=== PATIENT | female | born 1955 | race Caucasian/White ===

== ENCOUNTER 2017-12-11 08:41 | Inpatient (IN) | payer OTHER ==
--- NOTE | 2017-12-11 09:23 | PDOC ---
Attending Attestation - Resident Resident Name: Leo Jo - HPI HPI: 12/11/17 09:42 pt presents to the ED complaining of a 7 day history of cough and a three day history of worsening AGUILERA and SOB. Denies orthopnea. Complains of chest pain with cough only. Denies medical history except for COPD. Cough is occasionally productive of yellow sputum. - Physicial Exam PE: 12/11/17 09:55 Agree with resident exam. Patient is mildly tachypneic, but she is not in respiratory distress and lungs are clear. Heart has regular rate and rhythm with no murmurs. - Medical Decision Making 12/11/17 09:55 Pt presents to the ED complaining of shortness of breath and cough. History of COPD. No improvement with antibiotics and steroids. Patient has not been using bronchodilators to treat his COPD. Denies other complaints. Differential includes COPD exacerbation, CHF, less likely ACS or PNA. Will check labs and CXR, cardiac profile and BNP. EKG shows no evidence of ischemia.
[2017-12-11] MEDS ORDERED: ALBUTEROL SO4 2.5/IPRATROPIUM 0.5 INH SOL 3 ML VIAL.NEB. NEB ONE ×4 (09:48→20:05)
--- NOTE | 2017-12-11 09:52 | PDOC ---
History of Present Illness - General Chief Complaint: Shortness of Breath Stated Complaint: SOB Time Seen by Provider: 12/11/17 09:03 History Source: Patient Exam Limitations: No Limitations - History of Present Illness Initial Comments: 12/11/17 09:49 The patient is a 62F with a PMH of COPD, HLD, asthma, and psych history ( paranoid schizophrenia, depression, anxiety) who presents to the ER with worsening SOB. The patient states that she had a cough with SOB that started 8- 9 days ago. She was given a z-pack by her PCP, then given levaquin and prednisone. She finished taking the prednisone and has 1 more day of levaquin but states that her shortness of breath has continued to worsen. It is not associated with fever, chills, nausea, vomiting but is associated with SOB and productive cough 3x over the past week that she has been coughing. Past History - Past Medical History Allergies/Adverse Reactions: Allergies Allergy/AdvReac Type Severity Reaction Status Date / Time amoxicillin [Amoxicillin] Allergy Unknown Rash Verified 12/11/17 08:47 Home Medications: Ambulatory Orders Albuterol Sulfate Inhaler - [Ventolin HFA Inhaler -] 1 - 2 inh PO Q4H 12/11/17 Atorvastatin Ca [Lipitor] 20 mg PO HS 12/11/17 Benzonatate [Tessalon Pearls -] 100 mg PO TID #21 capsule 12/11/17 Fluticasone/Vilanterol [Breo Ellipta 100-25 Mcg INH] 1 each IH ASDIR 12/11/17 Levothyroxine [Synthroid -] 112 mcg PO DAILY 12/11/17 Lorazepam [Ativan] 2 mg PO BID 12/11/17 Montelukast Na [Singulair -] 10 mg PO HS 12/11/17 Olanzapine [Zyprexa] 30 mg PO DAILY 12/11/17 Sertraline HCl [Zoloft] 100 mg PO DAILY 12/11/17 Verapamil HCl [Verapamil ER] 120 mg PO DAILY 12/11/17 Budesonide/Formeterol Fumarate [SYMBICORT 160/4.5mcg -] 2 puff IH BID #1 inhaler 12/13/17 Tiotropium [place] [Spiriva] 1 inh IH DAILY #1 inh 12/13/17 predniSONE [Deltasone -] 5 mg PO ASDIR #78 tab 12/13/17 Anemia: Yes Asthma: Yes (/COUGH) Cancer: No Cardiac Disorders: Yes (palpitations) CVA: No COPD: Yes CHF: No DVT: No Dementia: No Diabetes: No GI Disorders: Yes (HIATAL HERNIA,DIVERTICULOSIS) Disorders: No HTN: No Hypercholesterolemia: Yes Liver Disease: No Seizures: No Thyroid Disease: No - Surgical History Abdominal Surgery: Yes (hital hernia) Appendectomy: No Cardiac Surgery: No Cholecystectomy: No Lung Surgery: No Neurologic Surgery: No Orthopedic Surgery: Yes (LT HIP ORIF,RT ANKLE) - Suicide/Smoking/Psychosocial Hx Smoking History: Never smoked Have you smoked in the past 12 months: No Information on smoking cessation initiated: No Hx Alcohol Use: No Drug/Substance Use Hx: No Substance Use Type: None Hx Substance Use Treatment: No Review of Systems - Review of Systems Able to Perform ROS?: Yes Comments:: 12/11/17 09:49 GENERAL/CONSTITUTIONAL: No fever or chills. No weakness. HEAD, EYES, EARS, NOSE AND THROAT: No change in vision. No ear pain or discharge. No sore throat. CARDIOVASCULAR: No chest pain, palpitations, or lightheadedness. RESPIRATORY: Positive for cough and shortness of breath. No wheezing or hemoptysis. GASTROINTESTINAL: No nausea, vomiting, diarrhea, constipation, or abdominal pain. GENITOURINARY: No dysuria, frequency, hematuria, or change in urination. MUSCULOSKELETAL: No joint or muscle swelling or pain. No neck or back pain. SKIN: No rash or lesions. NEUROLOGIC: No headache, numbness, tingling, weakness, loss of consciousness, or change in strength/sensation. ENDOCRINE: No increased thirst. No abnormal weight change. HEMATOLOGIC/LYMPHATIC: No anemia, easy bleeding, or history of blood clots. ALLERGIC/IMMUNOLOGIC: No hives or skin allergy. Is the patient limited Citizen Of [place] proficient: No *Physical Exam - Vital Signs Last Vital Signs Temp Pulse Resp BP Pulse Ox 97.6 F 87 22 107/72 95 12/11/17 08:48 12/11/17 08:48 12/11/17 08:48 12/11/17 08:48 12/11/17 08:48 - Physical Exam Comments: 12/11/17 09:49 GENERAL: Well developed, well nourished. Awake and alert. No acute distress. HEENT: Normocephalic, atraumatic. Hearing grossly normal. Moist mucous membranes. PERRLA, EOMI. No conjunctival pallor. Sclera are non-icteric. NECK: Supple. Full ROM. CARDIOVASCULAR: Regular rate and rhythm. No murmurs, rubs, or gallops. PULMONARY: No evidence of respiratory distress. Lungs clear to auscultation bilaterally. No wheezing, rales or rhonchi. ABDOMINAL: Soft. Non-tender. Non-distended. No rebound or guarding. No organomegaly. Normoactive bowel sounds. GENITOURINARY: No CVA tenderness bilaterally. MUSCULOSKELETAL: Normal range of motion at all joints. No bony deformities or tenderness. EXTREMITIES: No cyanosis. No clubbing. No edema. No calf tenderness or swelling. SKIN: Warm and dry. Normal capillary refill. No rashes. No jaundice. NEUROLOGICAL: Alert, awake, appropriate. Cranial nerves 2-12 intact. Normal speech. Gait is normal without ataxia. PSYCHIATRIC: Cooperative. Good eye contact. Appropriate mood and affect. ED Treatment Course - LABORATORY CBC & Chemistry Diagram: 12/13/17 06:20 12/13/17 06:20 - RADIOLOGY Radiology Studies Ordered: Category Date Time Status CHEST PA & LAT [RAD] Stat Radiology 12/11/17 09:30 Ordered Medical Decision Making - Medical Decision Making 12/11/17 12:46 The patient is a 62F with a PMH of COPD and psych who presents to the ER with worsening SOB. All labs including CBC, CMP, trop, and EKG negative. CXR negative on preliminary read. Pending official read. Will tx with yanely x 2. I have spoken with Dr. Tijerina who wants to see the patient in the ER. Will send jamie sagastume to 's pharmacy. 12/11/17 15:01 Dr. Tijerina requests that the patient is admitted to the hospital for worsening shortness of breath and for a workup regarding this. Dr. Ugalde has been paged. 12/11/17 15:22 I have endorsed the patient to Dr. Ugalde for obs tele admission. *DC/Admit/Observation/Transfer Diagnosis at time of Disposition: AGUILERA (dyspnea on exertion) - Discharge Dispostion Disposition: HOME Condition at time of disposition: Stable Decision to Admit order: Yes - Prescriptions - Referrals - Patient Instructions - Post Discharge Activity
[2017-12-11 09:59] LABS: BASO % 0.5 % (0-2.0); EOS % 0.4 % (0-4.5); HEMATOCRIT 40.6 % (32.4-45.2); HEMOGLOBIN 13.7 GM/dL (10.7-15.3); LYMPH % 20.2 % (8-40); MCH 30.2 pg (25.7-33.7); MCHC 33.9 g/dl (32.0-36.0); MEAN CELL VOLUME 89.1 fl (80-96); MEAN PLT VOLUME 7.2 fl (7.5-11.1); MONO % 9.3 % (3.8-10.2); NEUT % 69.6 % (42.8-82.8); PLATELET COUNT 275 K/MM3 (134-434); RBC 4.56 M/mm3 (3.60-5.2); RDW 13.7 % (11.6-15.6); WHITE BLOOD COUNT 9.6 K/mm3 (4.0-10.0)
[2017-12-11 10:21] LABS: ALBUMIN 3.7 g/dl (3.4-5.0); ALK PHOS 90 U/L (45-117); ANION GAP 10 (8-16); BILIRUBIN,TOTAL 0.3 mg/dL (0.2-1.0); BLOOD UREA NITROGEN 15 mg/dL (7-18); CALCIUM 9.1 mg/dL (8.5-10.1); CHLORIDE 101 mmol/L (98-107); CO2 23 mmol/L (21-32); CREATININE 0.9 mg/dL (0.55-1.02); GLUCOSE,RANDOM 114 mg/dL (74-106); SGPT/ALT 19 U/L (12-78); SODIUM 134 mmol/L (136-145); TOT PROT 7.1 g/dl (6.4-8.2)
[2017-12-11 10:23] LABS: N-TERMINAL BNP 104.93 pg/ml (5-125)
[2017-12-11 10:40] LABS: POTASSIUM 4.2 mmol/L (3.5-5.1); SGOT/AST 22 U/L (15-37)
[2017-12-11] MEDS ORDERED: methylPREDNISolone NA SUCC 125 MG/2 ML VIAL IVPB ONE (13:27)
--- NOTE | 2017-12-11 13:30 | EKG ---
Test Reason : Blood Pressure : / mmHG Vent. Rate : 082 BPM Atrial Rate : 082 BPM P-R Int : 162 ms QRS Dur : 102 ms QT Int : 388 ms P-R-T Axes : 070 008 038 degrees QTc Int : 453 ms SINUS RHYTHM WITH PREMATURE ATRIAL COMPLEXES INCOMPLETE RIGHT BUNDLE BRANCH BLOCK NONSPECIFIC T WAVE ABNORMALITY anterior leads WHEN COMPARED WITH ECG OF 22-DEC-2016 09:21, PREMATURE ATRIAL COMPLEXES ARE NOW PRESENT Confirmed by MD Eben, Kolby ([id number]) on 12/11/2017 1:30:22 PM Referred By: Confirmed By:Kolby Treadwell MD
[2017-12-11] MEDS ORDERED: methylPREDNISolone NA SUCC 40 MG/1 ML VIAL ONE ×3 (14:15→20:05)
[2017-12-11] MEDS ORDERED: guaiFENesin/CODEINE 10 ML UNIT-DOSE CUPS PO ONE (14:19)
[2017-12-11] MEDS ORDERED: guaiFENesin/CODEINE 5 ML UNIT-DOSE CUPS PO ONE (15:10)
--- NOTE | 2017-12-11 15:47 | HP ---
Admitting History and Physical - Primary Care Physician PCP: Nikolay Tijerina - Admission Chief Complaint: I'm short of breath History of Present Illness: Ms Gomes is a 62 year old female who comes in with worsening shortness of breath and cough for 2 weeks. She says she has been short of breath for approximately 2 years but the past 2 weeks her shortness of breath has worsened. She says she gets short of breath with minimal exertion and when lying flat. She says she also developed cough 7 days ago. She says it is minimally productive but in general it is a dry cough. She says it is also worsened with exertion. She has some lightheadedness with coughing but no syncope. She says she often hears wheezing when she gets short of breath. She denies fevers, chills, chest pain or pressure, palpitations, abdominal pain, nausea, vomiting, diarrhea, constipation, difficulty or pain on urination, or swelling. She is short of breath currently after going to the restroom. History Source: Patient Limitations to Obtaining History: No Limitations - Past Medical History Cardiovascular: Yes: Hyperlipdemia, Other (palpitations) Psych: Yes: Anxiety, Depression, Schizophrenia Endocrine: Yes: Hypothyroidism - Past Surgical History Past Surgical History: Yes: Joint Replacement - Smoking History Smoking history: Never smoked Have you smoked in the past 12 months: No - Alcohol/Substance Use Hx Alcohol Use: No History of Substance Use: reports: None - Social History ADL: Independent History of Recent Travel: No Home Medications - Allergies Allergies/Adverse Reactions: Allergies Allergy/AdvReac Type Severity Reaction Status Date / Time amoxicillin [Amoxicillin] Allergy Unknown Rash Verified 12/11/17 08:47 - Home Medications Home Medications: Ambulatory Orders Albuterol Sulfate Inhaler - [Ventolin Hfa Inhaler -] 1 - 2 inh PO Q4H 12/11/17 Atorvastatin Ca [Lipitor] 20 mg PO HS 12/11/17 Benzonatate [Tessalon Pearls -] 100 mg PO TID #21 capsule 12/11/17 Fluticasone/Vilanterol [Breo Ellipta 100-25 Mcg INH] 1 each IH ASDIR 12/11/17 Levothyroxine [Synthroid -] 112 mcg PO DAILY 12/11/17 Lorazepam [Ativan] 2 mg PO BID 12/11/17 Montelukast Na [Singulair -] 10 mg PO HS 12/11/17 Olanzapine [Zyprexa] 30 mg PO DAILY 12/11/17 Sertraline HCl [Zoloft] 100 mg PO DAILY 12/11/17 Verapamil HCl [Verapamil ER] 120 mg PO DAILY 12/11/17 levoFLOXacin [Levaquin] 750 mg PO DAILY 12/11/17 Family Disease History - Family Disease History Family Disease History: Heart Disease: Grandparent Review of Systems Findings/Remarks: Full review of systems obtained, as per HPI and otherwise negative Physical Examination Vital Signs: Vital Signs Temperature 36.3 C L 12/11/17 13:47 Pulse Rate 98 H 12/11/17 14:10 Respiratory Rate 20 12/11/17 13:47 Blood Pressure 115/72 12/11/17 13:47 O2 Sat by Pulse Oximetry (%) 96 12/11/17 13:47 Constitutional: Yes: No Distress, Calm, Obese Eyes: Yes: Conjunctiva Clear, EOM Intact, PERRL Cardiovascular: Yes: Regular Rate and Rhythm. No: Gallop, Murmur, Rub Respiratory: Yes: Cough (dry), Tachypnea, Wheezes (slight). No: Regular, CTA Bilaterally, Rales, Rhonchi Gastrointestinal: Yes: Normal Bowel Sounds, Soft. No: Distention, Tenderness Extremities: Yes: WNL Edema: No Labs: CBC, BMP 12/11/17 09:50 12/11/17 09:50 Imaging - Results Chest X-ray: Report Reviewed, Image Reviewed Problem List - Problems (1) AGUILERA (dyspnea on exertion) Assessment/Plan: -acutely worsened -failed outpatient z-pack and levaquin -failed short course of low dose prednisone -unclear cause -admit to hospital -consult pulmonary -check d-dimer and duplex dopplers -check ABG -bronchodilators -solumedrol 40mg q6h -monitor for improvement Code(s): R06.09 - OTHER FORMS OF DYSPNEA (2) HLD (hyperlipidemia) Assessment/Plan: -continue lipitor Code(s): E78.5 - HYPERLIPIDEMIA, UNSPECIFIED (3) Hypothyroid Assessment/Plan: -continue synthroid Code(s): E03.9 - HYPOTHYROIDISM, UNSPECIFIED (4) Paranoid schizophrenia Assessment/Plan: -continue zyprexa Code(s): F20.0 - PARANOID SCHIZOPHRENIA (5) Depression Assessment/Plan: -continue zoloft Code(s): F32.9 - MAJOR DEPRESSIVE DISORDER, SINGLE EPISODE, UNSPECIFIED (6) History of palpitations in adulthood Assessment/Plan: -continue verapamil Code(s): Z86.79 - PERSONAL HISTORY OF OTHER DISEASES OF THE CIRCULATORY SYSTEM
[2017-12-11] MEDS: IPRATROPIUM BR 0.02% 0.5 MG/2.5 ML VIAL.NEB. NEB SCH ×2 (16:00→20:17)
[2017-12-11] MEDS ORDERED: ACETAMINOPHEN 325 MG TABLET (FP) PO PRN (16:00)
[2017-12-11] MEDS: ALBUTEROL SO4 0.083% IH SOL 2.5 MG/3 ML VIAL.NEB. NEB SCH ×2 (16:00→20:17)
[2017-12-11] MEDS: methylPREDNISolone NA SUCC 40 MG/1 ML VIAL IVPUSH SCH (20:15)
[2017-12-11] MEDS ORDERED: LORazepam 0.5 MG TABLET ONE (22:21)
[2017-12-11] MEDS ORDERED: OLANZapine 10 MG TABLET ONE (22:21)
[2017-12-11] MEDS ORDERED: ATORVASTATIN CA 40 MG TABLET (FP) ONE (22:22)
[2017-12-11] MEDS ORDERED: MONTELUKAST NA 10 MG TABLET ONE (22:22)
[2017-12-11] MEDS: OLANZapine 10 MG TABLET PO SCH (22:32)
[2017-12-11] MEDS: MONTELUKAST NA 10 MG TABLET PO SCH (22:32)
[2017-12-11] MEDS: ATORVASTATIN CA 20 MG TABLET (FP) PO SCH (22:32)
[2017-12-11] MEDS: LORazepam 1 MG TABLET PO SCH (22:33)
[2017-12-12 00:37] LABS: ARTERIAL BLD GAS O2 SATURATION 95.4 % (90-98.9); ARTERIAL BLOOD GAS BASE EXCESS -1.9 meq/l (-2-2); ARTERIAL BLOOD GAS PCO2 33.6 mmHg (35-45); ARTERIAL BLOOD GAS PO2 72.9 mmHg (80-100); ARTERIAL BLOOD GAS pH 7.42 (7.35-7.45)
[2017-12-12 00:46] LABS: ALLENS TEST POSITIVE
[2017-12-12] MEDS ORDERED: methylPREDNISolone NA SUCC 40 MG/1 ML VIAL ONE (02:02)
[2017-12-12] MEDS: methylPREDNISolone NA SUCC 40 MG/1 ML VIAL IVPUSH SCH ×3 (02:10→17:29)
[2017-12-12] MEDS: IPRATROPIUM BR 0.02% 0.5 MG/2.5 ML VIAL.NEB. NEB SCH ×4 (07:40→20:00)
[2017-12-12] MEDS: ALBUTEROL SO4 0.083% IH SOL 2.5 MG/3 ML VIAL.NEB. NEB SCH (07:40)
[2017-12-12] MEDS: LEVOTHYROXINE NA 112 MCG TABLET (FP) PO SCH (07:41)
--- NOTE | 2017-12-12 08:48 | PN ---
Progress Note (short form) - Note Progress Note: Dr. Ugalde to document today.
[2017-12-12 09:00] LABS: BASO % 0.2 % (0-2.0); EOS % 0.1 % (0-4.5); HEMATOCRIT 41.6 % (32.4-45.2); HEMOGLOBIN 14.1 GM/dL (10.7-15.3); LYMPH % 11.5 % (8-40); MCHC 33.7 g/dl (32.0-36.0); MEAN PLT VOLUME 7.2 fl (7.5-11.1); MONO % 3.7 % (3.8-10.2); NEUT % 84.5 % (42.8-82.8); PLATELET COUNT 304 K/MM3 (134-434); RBC 4.68 M/mm3 (3.60-5.2); RDW 13.7 % (11.6-15.6); WHITE BLOOD COUNT 8.6 K/mm3 (4.0-10.0)
[2017-12-12 09:15] VITALS: BMI 41.1
[2017-12-12] MEDS ORDERED: PT OWN MED DRAWER 7, Y5N ONE ×3 (09:21→21:20)
[2017-12-12 09:22] LABS: ANION GAP 10 (8-16); BLOOD UREA NITROGEN 13 mg/dL (7-18); CALCIUM 9.4 mg/dL (8.5-10.1); CHLORIDE 104 mmol/L (98-107); CO2 23 mmol/L (21-32); CREATININE 0.9 mg/dL (0.55-1.02); GLUCOSE,RANDOM 196 mg/dL (74-106); MAGNESIUM 2.5 mg/dL (1.8-2.4); PHOSPHOROUS 3.3 mg/dL (2.5-4.9); SODIUM 137 mmol/L (136-145)
[2017-12-12] MEDS: ENOXAPARIN NA (PORCINE) 40 MG/0.4 ML DISP.SYRIN SQ SCH (09:30)
[2017-12-12] MEDS: LORazepam 1 MG TABLET PO SCH ×2 (09:30→21:05)
[2017-12-12] MEDS: SERTRALINE HCL 50 MG TABLET (FP) PO SCH (09:30)
[2017-12-12] MEDS: VERAPAMIL HCL 120 MG E.R. TABLET PO SCH (11:37)
--- NOTE | 2017-12-12 11:42 | PN ---
Progress Note (short form) - Note Progress Note: PULMONARY CONSULTATION DICTATED 12/12/17 IMP ASTHMA/COPD EXACERBATION URI H/O DEPRESSION,SCHIZOPHRENIA H/O TOBACCO ABUSE HLD PLAN IV STEROIDS INHALED BRONCHODILATORS MONITOR PEAK FLOW DVT PROPHYLAXIS LOW DOSE CHEST CT FOR LUNG CANCER SCREENING DR SUÁREZ Problem List - Problems (1) Asthma-COPD overlap syndrome Code(s): J44.9 - CHRONIC OBSTRUCTIVE PULMONARY DISEASE, UNSPECIFIED (2) AGUILERA (dyspnea on exertion) Code(s): R06.09 - OTHER FORMS OF DYSPNEA (3) Depression Code(s): F32.9 - MAJOR DEPRESSIVE DISORDER, SINGLE EPISODE, UNSPECIFIED (4) HLD (hyperlipidemia) Code(s): E78.5 - HYPERLIPIDEMIA, UNSPECIFIED (5) Paranoid schizophrenia Code(s): F20.0 - PARANOID SCHIZOPHRENIA
[2017-12-12] MEDS ORDERED: ALBUTEROL SO4 0.083% IH SOL 2.5 MG/3 ML VIAL.NEB. NEB PRN (11:43)
--- NOTE | 2017-12-12 11:47 | PN ---
Progress Note, Physician Chief Complaint: Ms Gomes says she is feeling better today. Says her breathing is improved and her wheezing has almost resolved. No cp or n/v. - Current Medication List Current Medications: Active Medications Acetaminophen (Tylenol -) 650 mg PO Q4H PRN PRN Reason: PAIN LEVEL 1-5 Albuterol Sulfate (Ventolin 0.083% Nebulizer Soln -) 1 amp NEB Q4H PRN PRN Reason: SHORT OF BREATH/WHEEZING Atorvastatin Calcium (Lipitor -) 20 mg PO HS COUNT INCLUDES THE [facility] Last Admin: 12/11/17 22:32 Dose: 20 mg Budesonide/Formoterol Fumarate (Symbicort 160/4.5mcg -) 2 puff IH BID MIGUEL Enoxaparin Sodium (Lovenox -) 40 mg SQ DAILY COUNT INCLUDES THE [facility] Last Admin: 12/12/17 09:30 Dose: 40 mg Ipratropium [place] (Atrovent 0.02% Nebulizer -) 1 amp NEB RQID COUNT INCLUDES THE [facility] Last Admin: 12/12/17 07:40 Dose: 1 amp Levothyroxine Sodium (Synthroid -) 112 mcg PO 0700 COUNT INCLUDES THE [facility] Last Admin: 12/12/17 07:41 Dose: 112 mcg Lorazepam (Ativan -) 2 mg PO BID COUNT INCLUDES THE [facility] Last Admin: 12/12/17 09:30 Dose: 2 mg Methylprednisolone Sodium Succinate (Solu-Medrol -) 40 mg IVPUSH Q8H-IV COUNT INCLUDES THE [facility] Last Admin: 12/12/17 09:30 Dose: 40 mg Montelukast Sodium (Singulair -) 10 mg PO HS COUNT INCLUDES THE [facility] Last Admin: 12/11/17 22:32 Dose: 10 mg Non-Formulary Medication (Fluticasone/Vilanterol [Breo Ellipta 100-25 Mcg Inh]) 1 each IH ASDIR MIGUEL Olanzapine (Zyprexa -) 30 mg PO [facility] Last Admin: 12/11/17 22:32 Dose: 30 mg Sertraline HCl (Zoloft -) 100 mg PO DAILY COUNT INCLUDES [facility] Last Admin: 12/12/17 09:30 Dose: 100 mg Verapamil HCl (Calan Sr -) 120 mg PO DAILY COUNT INCLUDES THE [facility] Last Admin: 12/12/17 11:37 Dose: 120 mg - Objective Vital Signs: Vital Signs Temperature 37.0 C 12/12/17 09:00 Pulse Rate 88 12/12/17 09:00 Respiratory Rate 20 12/12/17 09:00 Blood Pressure 114/70 12/12/17 09:00 O2 Sat by Pulse Oximetry (%) 94 L 12/12/17 09:00 Constitutional: Yes: No Distress, Calm, Obese Cardiovascular: Yes: Regular Rate and Rhythm. No: Gallop, Murmur, Rub Respiratory: Yes: Regular, Wheezes (slight) Gastrointestinal: Yes: Normal Bowel Sounds, Soft. No: Distention, Tenderness Extremities: Yes: WNL Edema: No Labs: CBC, BMP 12/12/17 08:45 12/12/17 08:45 Problem List - Problems (1) AGUILERA (dyspnea on exertion) Code(s): R06.09 - OTHER FORMS OF DYSPNEA (2) HLD (hyperlipidemia) Code(s): E78.5 - HYPERLIPIDEMIA, UNSPECIFIED (3) Hypothyroid Code(s): E03.9 - HYPOTHYROIDISM, UNSPECIFIED (4) Paranoid schizophrenia Code(s): F20.0 - PARANOID SCHIZOPHRENIA (5) Depression Code(s): F32.9 - MAJOR DEPRESSIVE DISORDER, SINGLE EPISODE, UNSPECIFIED (6) History of palpitations in adulthood Code(s): Z86.79 - PERSONAL HISTORY OF OTHER DISEASES OF THE CIRCULATORY SYSTEM Assessment/Plan (1) AGUILERA (dyspnea on exertion) Assessment/Plan: -much improved -appreciate pulmonary assistance and case d/w Dr Yoon -continue solumedrol -continue bronchodilators -CT scan for lung cancer screening Code(s): R06.09 - OTHER FORMS OF DYSPNEA (2) HLD (hyperlipidemia) Assessment/Plan: -continue lipitor Code(s): E78.5 - HYPERLIPIDEMIA, UNSPECIFIED (3) Hypothyroid Assessment/Plan: -continue synthroid Code(s): E03.9 - HYPOTHYROIDISM, UNSPECIFIED (4) Paranoid schizophrenia Assessment/Plan: -continue zyprexa Code(s): F20.0 - PARANOID SCHIZOPHRENIA (5) Depression Assessment/Plan: -continue zoloft Code(s): F32.9 - MAJOR DEPRESSIVE DISORDER, SINGLE EPISODE, UNSPECIFIED (6) History of palpitations in adulthood Assessment/Plan: -continue verapamil Code(s): Z86.79 - PERSONAL HISTORY OF OTHER DISEASES OF THE CIRCULATORY SYSTEM Dispo -possible discharge tomorrow
--- NOTE | 2017-12-12 12:21 | CONS ---
DATE OF CONSULTATION: 12/12/2017 REFERRING PHYSICIAN: Sonido Ugalde MD The patient is a 62-year-old white female with a past medical history of COPD/asthma, hyperlipidemia, history of paranoid schizophrenia, depression, anxiety, history of tobacco use approximately half-pack per day, quit 9 years ago, admitted to [facility] with the complaint of increasing shortness of breath and cough and bronchospasm. Patient states she was doing relatively well until approximately 8 to 9 days ago when she started developing cough, which was initially dry, associated with shortness of breath and some wheezing. At that time, she was placed on Z-Bro by the PCP and then placed on Levaquin, as well as a short course of prednisone, which she also noted significant improvement. Denies any fever or chills. She states that her symptoms continued to worsen at which time she presented to the emergency room. In the ER, she was treated with inhaled bronchodilators and steroids and transferred up to the Medical Floor for further management. She denies any hemoptysis, denies any chest pain or palpitations. She denies any fever, chills, nausea, vomiting or diaphoresis. She states that her cough has been productive of greenish yellowish sputum for the past 3 days prior to this admission. PAST MEDICAL HISTORY: Again includes COPD, hyperlipidemia, asthma, has a psychiatric history paranoid schizophrenia, depression, anxiety. REVIEW OF SYSTEMS: Positive shortness of breath, no orthopnea, no PND, positive wheezing, positive cough, no nausea, no vomiting, no diaphoresis, no abdominal pain, no lower extremity edema. SOCIAL HISTORY: History of tobacco use one half pack per day, quit 9 years ago. Retired nurse. Currently on disability. MEDICATIONS: Prior to admission include albuterol, Lipitor, Tessalon [place], Breo Ellipta, Synthroid, Ativan and Singulair. CURRENT MEDICATIONS: Include Breo Ellipta, Solu-Medrol, Tylenol, Lovenox, Zoloft, Zyprexa, Ativan, albuterol, Calan, Atrovent solution, Lipitor, Singulair and Synthroid. PHYSICAL EXAMINATION: General: The patient is a well-developed, well-nourished female awake, alert, currently in no acute distress. Vitals: She is currently afebrile. Blood pressure is 114/70. Respiratory rate is 20. O2 saturation is 93% on room air. HEENT: Normocephalic atraumatic. Neck: Supple. Heart: Regular. S1, S2. Chest: Diminished breath sounds bilaterally. Abdomen: Soft. Bowel sounds are positive. Extremities: No cyanosis, edema. LABORATORY STUDIES: WBC is 8.6, hemoglobin 14.1, hematocrit 41.6 with a platelet count of 304,000. INR is 1.03. D-dimer is 270. BUN 13, creatinine 0.9, magnesium 2.5. Chest x-ray reveals left basilar atelectasis, no infiltration, no effusions. Duplex lower extremities was negative. IMPRESSION: 1. Dyspnea, cough, bronchospasm most likely secondary to chronic obstructive pulmonary disease/asthma exacerbation. 2. History of psychiatric disorder, schizophrenia, depression, anxiety. 3. Hyperlipidemia. PLAN: Continue IV steroids, inhaled bronchodilators, supplemental O2, PFT as outpatient, monitor peak flow. MAGALI SUÁREZ M.D. [id number]
[2017-12-12] MEDS: BUDESONIDE/FORMETEROL FUMARATE 160/4.5 mcg INHALER IH SCH ×2 (16:54→23:25)
[2017-12-12] MEDS: MONTELUKAST NA 10 MG TABLET PO SCH (21:05)
[2017-12-12] MEDS: ATORVASTATIN CA 20 MG TABLET (FP) PO SCH (21:05)
[2017-12-12] MEDS: OLANZapine 10 MG TABLET PO SCH (23:39)
[2017-12-13] MEDS: methylPREDNISolone NA SUCC 40 MG/1 ML VIAL IVPUSH SCH ×2 (02:28→09:55)
[2017-12-13] MEDS: LEVOTHYROXINE NA 112 MCG TABLET (FP) PO SCH (06:03)
[2017-12-13 07:02] LABS: HEMATOCRIT 38.2 % (32.4-45.2); HEMOGLOBIN 13.1 GM/dL (10.7-15.3); LYMPH % 8.8 % (8-40); MCH 30.7 pg (25.7-33.7); MCHC 34.3 g/dl (32.0-36.0); MEAN CELL VOLUME 89.6 fl (80-96); MEAN PLT VOLUME 7.5 fl (7.5-11.1); MONO % 5.6 % (3.8-10.2); NEUT % 85.6 % (42.8-82.8); PLATELET COUNT 286 K/MM3 (134-434); RBC 4.26 M/mm3 (3.60-5.2); RDW 13.8 % (11.6-15.6); WHITE BLOOD COUNT 9.6 K/mm3 (4.0-10.0)
[2017-12-13 07:11] LABS: ANION GAP 9 (8-16); CHLORIDE 103 mmol/L (98-107); CO2 24 mmol/L (21-32); GLUCOSE,RANDOM 173 mg/dL (74-106); PHOSPHOROUS 3.9 mg/dL (2.5-4.9); POTASSIUM 3.9 mmol/L (3.5-5.1); SODIUM 136 mmol/L (136-145)
[2017-12-13 07:13] LABS: CALCIUM 9.1 mg/dL (8.5-10.1); CREATININE 0.9 mg/dL (0.55-1.02); MAGNESIUM 2.5 mg/dL (1.8-2.4)
[2017-12-13 07:28] LABS: BLOOD UREA NITROGEN 16 mg/dL (7-18)
[2017-12-13] MEDS: IPRATROPIUM BR 0.02% 0.5 MG/2.5 ML VIAL.NEB. NEB SCH ×2 (07:35→11:30)
--- NOTE | 2017-12-13 08:52 | PN ---
Progress Note (short form) - Note Progress Note: Dr. Ugalde to document today. CT chest ordered as per MD's notes.
--- NOTE | 2017-12-13 09:21 | PN ---
Progress Note (short form) - Note Progress Note: Breathing feels better today. Comfortable on RA. Some dry cough persists. For CT chest. Intake & Output 12/10/17 12/11/17 12/12/17 12/13/17 23:59 23:59 23:59 23:59 Intake Total 650 120 Balance 650 120 Weight 270 lb 270 lb 2 oz Last Vital Signs Temp Pulse Resp BP Pulse Ox 97.8 F 79 18 113/68 94 L 12/13/17 06:47 12/13/17 06:47 12/13/17 06:47 12/13/17 06:47 12/12/17 20:55 Active Medications Acetaminophen (Tylenol -) 650 mg PO Q4H PRN PRN Reason: PAIN LEVEL 1-5 Albuterol Sulfate (Ventolin 0.083% Nebulizer Soln -) 1 amp NEB Q4H PRN PRN Reason: SHORT OF BREATH/WHEEZING Atorvastatin Calcium (Lipitor -) 20 mg PO HS [facility] Last Admin: 12/12/17 21:05 Dose: 20 mg Budesonide/Formoterol Fumarate (Symbicort 160/4.5mcg -) 2 puff IH BID [facility] Last Admin: 12/12/17 23:25 Dose: 2 puff Enoxaparin Sodium (Lovenox -) 40 mg SQ DAILY [facility] Last Admin: 12/12/17 09:30 Dose: 40 mg Ipratropium [place] (Atrovent 0.02% Nebulizer -) 1 amp NEB RQID [facility] Last Admin: 12/13/17 07:35 Dose: 1 amp Levothyroxine Sodium (Synthroid -) 112 mcg PO 0700 [facility] Last Admin: 12/13/17 06:03 Dose: 112 mcg Lorazepam (Ativan -) 2 mg PO BID [facility] Last Admin: 12/12/17 21:05 Dose: 2 mg Methylprednisolone Sodium Succinate (Solu-Medrol -) 40 mg IVPUSH Q8H-IV [facility] Last Admin: 12/13/17 02:28 Dose: 40 mg Montelukast Sodium (Singulair -) 10 mg PO HS [facility] Last Admin: 12/12/17 21:05 Dose: 10 mg Non-Formulary Medication (Fluticasone/Vilanterol [Breo Ellipta 100-25 Mcg Inh]) 1 each IH ASDIR MIGUEL Olanzapine (Zyprexa -) 30 mg PO [facility] Last Admin: 12/12/17 23:39 Dose: 30 mg Sertraline HCl (Zoloft -) 100 mg PO DAILY [facility] Last Admin: 12/12/17 09:30 Dose: 100 mg Verapamil HCl (Calan Sr -) 120 mg PO DAILY [facility] Last Admin: 12/12/17 11:37 Dose: 120 mg Constitutional: Yes: No Distress, Obese Cardiovascular: Yes: Regular Rate and Rhythm. No: Gallop, Murmur, Rub Respiratory: Yes: Few scattered Rhonchi, no wheeze Gastrointestinal: Yes: Normal Bowel Sounds, Soft. No: Distention, Tenderness Extremities: Yes: WNL Edema: No Lab Laboratory Results - last 24 hr 12/12/17 12/13/17 12/13/17 08:45 06:20 06:20 WBC 9.6 RBC 4.26 Hgb 13.1 Hct 38.2 MCV 89.6 MCH 30.7 MCHC 34.3 RDW 13.8 Plt Count 286 MPV 7.5 Neutrophils % 85.6 H Lymphocytes % 8.8 D Monocytes % 5.6 Eosinophils % 0.0 D Basophils % 0.0 Nucleated RBC % 0 Sodium 137 136 Potassium 4.0 3.9 Chloride 104 103 Carbon Dioxide 23 24 Anion Gap 10 9 BUN 13 16 Creatinine 0.9 0.9 Random Glucose 196 H 173 H Calcium 9.4 9.1 Phosphorus 3.3 3.9 Magnesium 2.5 H 2.5 H Problem List - Problems (1) Asthma-COPD overlap syndrome Code(s): J44.9 - CHRONIC OBSTRUCTIVE PULMONARY DISEASE, UNSPECIFIED (2) AGUILERA (dyspnea on exertion) Code(s): R06.09 - OTHER FORMS OF DYSPNEA (3) Depression Code(s): F32.9 - MAJOR DEPRESSIVE DISORDER, SINGLE EPISODE, UNSPECIFIED (4) HLD (hyperlipidemia) Code(s): E78.5 - HYPERLIPIDEMIA, UNSPECIFIED (5) Paranoid schizophrenia Code(s): F20.0 - PARANOID SCHIZOPHRENIA IMP ASTHMA/COPD EXACERBATION URI H/O DEPRESSION,SCHIZOPHRENIA, ANXIETY H/O TOBACCO ABUSE HLD PLAN IV STEROIDS: CAN LIKELY CHANGE TO PREDNISONE IN THE AM INHALED BRONCHODILATORS MONITOR PEAK FLOW DVT PROPHYLAXIS NOTED CT CHEST ORDERED DR ANN
[2017-12-13] MEDS: LORazepam 1 MG TABLET PO SCH (09:55)
[2017-12-13] MEDS: SERTRALINE HCL 50 MG TABLET (FP) PO SCH (09:55)
[2017-12-13] MEDS: ENOXAPARIN NA (PORCINE) 40 MG/0.4 ML DISP.SYRIN SQ SCH (09:56)
[2017-12-13] MEDS: BUDESONIDE/FORMETEROL FUMARATE 160/4.5 mcg INHALER IH SCH (09:58)
[2017-12-13] MEDS ORDERED: PT OWN MED DRAWER 7, Y5N ONE (10:06)
[2017-12-13] MEDS: VERAPAMIL HCL 120 MG E.R. TABLET PO SCH (10:09)
[2017-12-13 12:24] VITALS: BP 118/80; PULSE 102; TEMP 98.1
--- NOTE | 2017-12-13 14:07 | DS ---
Physical Examination Vital Signs: Vital Signs Temperature 36.7 C 12/13/17 10:00 Pulse Rate 102 H 12/13/17 10:00 Respiratory Rate 18 12/13/17 10:00 Blood Pressure 118/80 12/13/17 10:00 O2 Sat by Pulse Oximetry (%) 94 L 12/13/17 09:00 Labs: CBC, BMP 12/13/17 06:20 12/13/17 06:20 Discharge Summary Reason For Visit: DYSPNEA ON EXERTION Current Active Problems Asthma-COPD overlap syndrome (Acute) AGUILERA (dyspnea on exertion) (Acute) Depression (Acute) HLD (hyperlipidemia) (Acute) History of palpitations in adulthood (Acute) Hypothyroid (Acute) Paranoid schizophrenia (Acute) Condition: Stable - Instructions Diet, Activity, Other Instructions: renew previous diet and activity. Referrals: Nikolay Tijerina MD [Primary Care Provider] - Sergei Barraza MD [Staff Physician] - Disposition: HOME - Home Medications Comprehensive Discharge Medication List: Ambulatory Orders Albuterol Sulfate Inhaler - [Ventolin HFA Inhaler -] 1 - 2 inh PO Q4H 12/11/17 Atorvastatin Ca [Lipitor] 20 mg PO HS 12/11/17 Benzonatate [Tessalon Pearls -] 100 mg PO TID #21 capsule 12/11/17 Fluticasone/Vilanterol [Breo Ellipta 100-25 Mcg INH] 1 each IH ASDIR 12/11/17 Levothyroxine [Synthroid -] 112 mcg PO DAILY 12/11/17 Lorazepam [Ativan] 2 mg PO BID 12/11/17 Montelukast Na [Singulair -] 10 mg PO HS 12/11/17 Olanzapine [Zyprexa] 30 mg PO DAILY 12/11/17 Sertraline HCl [Zoloft] 100 mg PO DAILY 12/11/17 Verapamil HCl [Verapamil ER] 120 mg PO DAILY 12/11/17 Budesonide/Formeterol Fumarate [SYMBICORT 160/4.5mcg -] 2 puff IH BID #1 inhaler 12/13/17 Tiotropium Orange [Spiriva] 1 inh IH DAILY #1 inh 12/13/17 predniSONE [Deltasone -] 5 mg PO ASDIR #78 tab 12/13/17
== END 2017-12-13 15:00 | disposition home or self-care (01) | DRG 202 ==
LOC: JER 08:41 → JERBED 15:23 → OBSVTOIN 15:45 → J4W 12-12 06:47 → J8W 12-12 21:35
PROVIDERS: ADMIT Internal Medicine; ATTEND Internal Medicine
DX: J45.901 Unspecified asthma with (acute) exacerbation (principal); J44.1 Chronic obstructive pulmonary disease with (acute) exacerbation; F20.0 Paranoid schizophrenia; Z68.41 Body mass index [BMI] 40.0-44.9, adult; J06.9 Acute upper respiratory infection, unspecified; E78.5 Hyperlipidemia, unspecified; F41.9 Anxiety disorder, unspecified; E66.9 Obesity, unspecified; E03.9 Hypothyroidism, unspecified; F32.9 Major depressive disorder, single episode, unspecified; Z87.891 Personal history of nicotine dependence
CPT/HCPCS: 36415; 36600; 71046-TC-FY; 71250-TC; 80048; 80053; 82550; 82803; 83735; 83880; 84100; 84484; 85025; 85379; 93005; 93010; 93970-TC; 94640; 99285-25; G0378; J7620

== ENCOUNTER 2020-07-30 07:28 | Inpatient (IN) | payer BC, OTHER ==
[2020-07-30] MEDS ORDERED: ACETAMINOPHEN 500 MG TABLET (FP) PO ONE (09:12)
[2020-07-30] MEDS ORDERED: ACETAMINOPHEN 325 MG TABLET (FP) ONE (09:14)
[2020-07-30] MEDS ORDERED: DEXAMETHASONE SOD PHOSPHATE 10 MG/1 ML VIAL IVPUSH ONE (09:23)
[2020-07-30 09:40] LABS: BASO % 0.2 % (0-2.0); HEMOGLOBIN 13.5 GM/dL (10.7-15.3); LYMPH % 9.9 % (8-40); MCH 30.7 pg (25.7-33.7); MCHC 34.5 g/dl (32.0-36.0); MEAN CELL VOLUME 88.8 fl (80-96); MEAN PLT VOLUME 7.3 fl (7.5-11.1); MONO % 8.4 % (3.8-10.2); NEUT % 81.5 % (42.8-82.8); PLATELET COUNT 198 K/MM3 (134-434); RBC 4.39 M/mm3 (3.60-5.2); RDW 13.2 % (11.6-15.6); WHITE BLOOD COUNT 6.2 K/mm3 (4.0-10.0)
[2020-07-30 09:50] LABS: CHLORIDE 104 mmol/L (98-107); POTASSIUM 4.2 mmol/L (3.5-5.1); SODIUM 138 mmol/L (136-145)
[2020-07-30 09:53] LABS: CALCIUM 8.6 mg/dL (8.5-10.1)
[2020-07-30 09:54] LABS: ALBUMIN 3.4 g/dl (3.4-5.0); ANION GAP 9 MMOL/L (8-16); BLOOD UREA NITROGEN 9.5 mg/dL (7-18); CO2 25 mmol/L (21-32); GLUCOSE,RANDOM 135 mg/dL (74-106)
[2020-07-30] MEDS ORDERED: DEXAMETHASONE SOD PHOSPHATE 10 MG/1 ML VIAL ONE (09:54)
[2020-07-30 09:57] LABS: BILIRUBIN,DIRECT 0.1 mg/dL (0.0-0.2); BILIRUBIN,TOTAL 0.2 mg/dL (0.2-1); CREATININE 0.8 mg/dL (0.55-1.3); LDH 251 U/L (84-246); SGOT/AST 25 U/L (15-37); SGPT/ALT 32 U/L (13-61)
[2020-07-30 09:59] LABS: ALK PHOS 99 U/L (45-117); TOT PROT 6.7 g/dl (6.4-8.2)
[2020-07-30 10:00] LABS: INR 1.03 (0.83-1.09); PROTHROMBIN TIME (PATIENT) 12.5 SEC (9.7-13.0)
[2020-07-30 10:02] LABS: ACTIVATED PTT 34.8 SECONDS (25.2-36.5)
[2020-07-30] MEDS ORDERED: ALBUTEROL SO4 2.5/IPRATROPIUM 0.5 INH SOL 3 ML VIAL.NEB. NEB ONE (10:35)
[2020-07-30] MEDS: ALBUTEROL SO4 2.5/IPRATROPIUM 0.5 INH SOL 3 ML VIAL.NEB. NEB SCH ×2 (10:44→11:01)
[2020-07-30] MEDS ORDERED: LORazepam 2 MG TABLET PO PRN (12:41)
[2020-07-30] MEDS ORDERED: ALBUTEROL SO4 HFA INHALER IH PRN (12:45)
[2020-07-30] MEDS ORDERED: dilTIAZem HCL 60 MG TABLET ONE (15:33)
[2020-07-30] MEDS: OLANZapine 10 MG TABLET PO SCH (21:19)
[2020-07-30] MEDS: ATORVASTATIN CA 20 MG TABLET (FP) PO SCH (21:20)
[2020-07-31] MEDS: LEVOTHYROXINE NA 125 MCG TABLET (FP) PO SCH (06:20)
[2020-07-31 09:14] LABS: PH,URINE 6.5 (5.0-8.0); URINE APPEARANCE CLEAR; URINE BILIRUBIN NEGATIVE (NEGATIVE); URINE COLOR YELLOW; URINE GLUCOSE (UA) 1+ (NEGATIVE); URINE KETONE NEGATIVE (NEGATIVE); URINE LEUK ESTERASE NEGATIVE (NEGATIVE); URINE NITRITE NEGATIVE (NEGATIVE); URINE PROTEIN NEGATIVE (NEGATIVE); URINE UROBILINOGEN 0.2 mg/dL (0.2-1.0)
[2020-07-31] MEDS: SERTRALINE HCL 50 MG TABLET (FP) PO SCH (09:58)
[2020-07-31] MEDS: LORazepam 1 MG TABLET PO PRN ×2 (09:58→18:33)
[2020-07-31] MEDS: ASCORBIC ACID 500 MG TABLET (FP) PO SCH (09:58)
[2020-07-31] MEDS: ZINC SULFATE 220 MG CAPSULE (FP) PO SCH (09:59)
[2020-07-31] MEDS: ENOXAPARIN NA (PORCINE) 40 MG/0.4 ML DISP.SYRIN SQ SCH (10:00)
[2020-07-31] MEDS: DEXAMETHASONE SOD PHOSPHATE 4 MG/1 ML VIAL IVPUSH SCH (10:01)
[2020-07-31] MEDS ORDERED: REMDESIVIR 200 MG in SODIUM CHLORIDE 210 ML IVPB ONE (10:30)
[2020-07-31 10:47] LABS: HEMATOCRIT 38.7 % (32.4-45.2); HEMOGLOBIN 13.2 GM/dL (10.7-15.3); MCH 30.4 pg (25.7-33.7); MEAN CELL VOLUME 89.5 fl (80-96); MEAN PLT VOLUME 7.7 fl (7.5-11.1); PLATELET COUNT 205 K/MM3 (134-434); RBC 4.33 M/mm3 (3.60-5.2); RDW 13.3 % (11.6-15.6); WHITE BLOOD COUNT 7.9 K/mm3 (4.0-10.0)
[2020-07-31 11:44] LABS: POTASSIUM 4.3 mmol/L (3.5-5.1)
[2020-07-31 11:47] LABS: CALCIUM 8.9 mg/dL (8.5-10.1)
[2020-07-31 11:48] LABS: ALBUMIN 3.5 g/dl (3.4-5.0); MAGNESIUM 2.3 mg/dL (1.8-2.4)
[2020-07-31 11:49] LABS: BLOOD UREA NITROGEN 9.5 mg/dL (7-18)
[2020-07-31 11:50] LABS: PHOSPHOROUS 2.3 mg/dL (2.5-4.9)
[2020-07-31 11:51] LABS: BILIRUBIN,TOTAL 0.3 mg/dL (0.2-1)
[2020-07-31 11:53] LABS: CREATININE 0.9 mg/dL (0.55-1.3)
[2020-07-31] MEDS ORDERED: PT OWN MED DRAWER 7, Y5N ONE (13:45)
[2020-07-31] MEDS: CHOLECALCIFEROL (VIT D3) 5000 UNITS (125 MCG) CAP PO SCH (14:08)
[2020-07-31] MEDS: guaiFENesin 200 MG/10 ML 10 ML UNIT-DOSE CUPS PO PRN ×2 (14:08→21:34)
[2020-07-31] MEDS: FAMOTIDINE 10 MG TABLET PO SCH (14:09)
[2020-07-31] MEDS: OLANZapine 10 MG TABLET PO SCH (21:14)
[2020-07-31] MEDS: ATORVASTATIN CA 20 MG TABLET (FP) PO SCH (21:14)
[2020-08-01] MEDS: LEVOTHYROXINE NA 125 MCG TABLET (FP) PO SCH (06:00)
[2020-08-01] MEDS: LORazepam 1 MG TABLET PO PRN ×2 (08:50→18:14)
[2020-08-01 10:23] LABS: POTASSIUM 3.8 mmol/L (3.5-5.1)
[2020-08-01 10:34] LABS: CREATININE 0.8 mg/dL (0.55-1.3)
[2020-08-01 10:36] LABS: BILIRUBIN,TOTAL 0.4 mg/dL (0.2-1); TOT PROT 6.7 g/dl (6.4-8.2)
[2020-08-01 10:39] LABS: CALCIUM 8.8 mg/dL (8.5-10.1)
[2020-08-01 10:40] LABS: ALBUMIN 3.6 g/dl (3.4-5.0); BLOOD UREA NITROGEN 13.4 mg/dL (7-18)
[2020-08-01] MEDS: DEXAMETHASONE SOD PHOSPHATE 4 MG/1 ML VIAL IVPUSH SCH (10:51)
[2020-08-01] MEDS: ENOXAPARIN NA (PORCINE) 40 MG/0.4 ML DISP.SYRIN SQ SCH (10:51)
[2020-08-01] MEDS: ASCORBIC ACID 500 MG TABLET (FP) PO SCH (10:51)
[2020-08-01] MEDS: ZINC SULFATE 220 MG CAPSULE (FP) PO SCH (10:51)
[2020-08-01] MEDS: SERTRALINE HCL 50 MG TABLET (FP) PO SCH (10:52)
[2020-08-01] MEDS: FAMOTIDINE 10 MG TABLET PO SCH (10:53)
[2020-08-01] MEDS: CHOLECALCIFEROL (VIT D3) 5000 UNITS (125 MCG) CAP PO SCH (10:54)
[2020-08-01] MEDS: REMDESIVIR 100 MG in SODIUM CHLORIDE 230 ML IVPB SCH (10:56)
[2020-08-01 11:11] LABS: BASO % 0.1 % (0-2.0); HEMOGLOBIN 13.1 GM/dL (10.7-15.3); LYMPH % 8.9 % (8-40); MCHC 34.6 g/dl (32.0-36.0); MEAN CELL VOLUME 89.6 fl (80-96); MEAN PLT VOLUME 7.6 fl (7.5-11.1); MONO % 7.9 % (3.8-10.2); NEUT % 83.1 % (42.8-82.8); PLATELET COUNT 213 K/MM3 (134-434); RBC 4.23 M/mm3 (3.60-5.2); RDW 13.2 % (11.6-15.6); WHITE BLOOD COUNT 8.1 K/mm3 (4.0-10.0)
[2020-08-01] MEDS: guaiFENesin 200 MG/10 ML 10 ML UNIT-DOSE CUPS PO PRN (17:25)
[2020-08-01] MEDS: ATORVASTATIN CA 20 MG TABLET (FP) PO SCH (21:49)
[2020-08-01] MEDS: OLANZapine 10 MG TABLET PO SCH (21:51)
[2020-08-02] MEDS: guaiFENesin 200 MG/10 ML 10 ML UNIT-DOSE CUPS PO PRN ×3 (04:19→22:30)
[2020-08-02] MEDS: LEVOTHYROXINE NA 125 MCG TABLET (FP) PO SCH (06:36)
[2020-08-02] MEDS ORDERED: PT OWN MED DRAWER 7, Y5N ONE (09:13)
[2020-08-02] MEDS: FAMOTIDINE 10 MG TABLET PO SCH (09:27)
[2020-08-02] MEDS: SERTRALINE HCL 50 MG TABLET (FP) PO SCH (09:27)
[2020-08-02] MEDS: CHOLECALCIFEROL (VIT D3) 5000 UNITS (125 MCG) CAP PO SCH (09:27)
[2020-08-02] MEDS: ZINC SULFATE 220 MG CAPSULE (FP) PO SCH (09:28)
[2020-08-02] MEDS: LORazepam 1 MG TABLET PO PRN ×2 (09:28→21:09)
[2020-08-02] MEDS: ASCORBIC ACID 500 MG TABLET (FP) PO SCH (09:28)
[2020-08-02] MEDS: DEXAMETHASONE SOD PHOSPHATE 4 MG/1 ML VIAL IVPUSH SCH (09:29)
[2020-08-02] MEDS: ENOXAPARIN NA (PORCINE) 40 MG/0.4 ML DISP.SYRIN SQ SCH (09:40)
[2020-08-02 10:22] LABS: BASO % 0.1 % (0-2.0); HEMATOCRIT 39.3 % (32.4-45.2); HEMOGLOBIN 13.3 GM/dL (10.7-15.3); LYMPH % 13.8 % (8-40); MCH 30.3 pg (25.7-33.7); MCHC 33.9 g/dl (32.0-36.0); MEAN CELL VOLUME 89.5 fl (80-96); MEAN PLT VOLUME 7.5 fl (7.5-11.1); MONO % 9.5 % (3.8-10.2); NEUT % 76.6 % (42.8-82.8); PLATELET COUNT 219 K/MM3 (134-434); RBC 4.39 M/mm3 (3.60-5.2); RDW 13.3 % (11.6-15.6); WHITE BLOOD COUNT 5.8 K/mm3 (4.0-10.0)
[2020-08-02 10:34] LABS: POTASSIUM 3.8 mmol/L (3.5-5.1)
[2020-08-02 10:40] LABS: ALBUMIN 3.4 g/dl (3.4-5.0); BLOOD UREA NITROGEN 14.4 mg/dL (7-18)
[2020-08-02 10:41] LABS: CALCIUM 9.1 mg/dL (8.5-10.1)
[2020-08-02 10:43] LABS: CREATININE 0.8 mg/dL (0.55-1.3)
[2020-08-02 10:45] LABS: BILIRUBIN,TOTAL 0.8 mg/dL (0.2-1); TOT PROT 6.4 g/dl (6.4-8.2)
[2020-08-02] MEDS: REMDESIVIR 100 MG in SODIUM CHLORIDE 230 ML IVPB SCH (11:11)
[2020-08-02 17:02] VITALS: BMI 42.1
[2020-08-02] MEDS: OLANZapine 10 MG TABLET PO SCH (21:09)
[2020-08-02] MEDS: ATORVASTATIN CA 20 MG TABLET (FP) PO SCH (21:10)
[2020-08-03] MEDS: LEVOTHYROXINE NA 125 MCG TABLET (FP) PO SCH (06:21)
[2020-08-03 09:41] LABS: BASO % 0.1 % (0-2.0); HEMATOCRIT 40.2 % (32.4-45.2); HEMOGLOBIN 13.6 GM/dL (10.7-15.3); LYMPH % 20.1 % (8-40); MCH 30.3 pg (25.7-33.7); MCHC 33.7 g/dl (32.0-36.0); MEAN CELL VOLUME 89.8 fl (80-96); MEAN PLT VOLUME 7.5 fl (7.5-11.1); MONO % 9.1 % (3.8-10.2); NEUT % 70.7 % (42.8-82.8); PLATELET COUNT 242 K/MM3 (134-434); RBC 4.47 M/mm3 (3.60-5.2); RDW 13.2 % (11.6-15.6); WHITE BLOOD COUNT 6.4 K/mm3 (4.0-10.0)
[2020-08-03] MEDS: REMDESIVIR 100 MG in SODIUM CHLORIDE 230 ML IVPB SCH (09:50)
[2020-08-03] MEDS: LORazepam 1 MG TABLET PO PRN ×2 (09:51→17:33)
[2020-08-03] MEDS: ENOXAPARIN NA (PORCINE) 40 MG/0.4 ML DISP.SYRIN SQ SCH (09:51)
[2020-08-03] MEDS: FAMOTIDINE 10 MG TABLET PO SCH (09:51)
[2020-08-03] MEDS: DEXAMETHASONE SOD PHOSPHATE 4 MG/1 ML VIAL IVPUSH SCH (09:51)
[2020-08-03] MEDS: guaiFENesin 200 MG/10 ML 10 ML UNIT-DOSE CUPS PO PRN ×3 (09:51→23:50)
[2020-08-03] MEDS: ZINC SULFATE 220 MG CAPSULE (FP) PO SCH (09:51)
[2020-08-03] MEDS: ASCORBIC ACID 500 MG TABLET (FP) PO SCH (09:52)
[2020-08-03] MEDS: CHOLECALCIFEROL (VIT D3) 5000 UNITS (125 MCG) CAP PO SCH (09:52)
[2020-08-03] MEDS: SERTRALINE HCL 50 MG TABLET (FP) PO SCH (09:52)
[2020-08-03 09:56] LABS: POTASSIUM 3.8 mmol/L (3.5-5.1)
[2020-08-03 10:19] LABS: ALBUMIN 3.3 g/dl (3.4-5.0); BLOOD UREA NITROGEN 17.6 mg/dL (7-18); CALCIUM 8.9 mg/dL (8.5-10.1)
[2020-08-03 10:23] LABS: BILIRUBIN,TOTAL 0.5 mg/dL (0.2-1); CREATININE 0.9 mg/dL (0.55-1.3); TOT PROT 6.3 g/dl (6.4-8.2)
[2020-08-03 10:24] LABS: PHOSPHOROUS 3.8 mg/dL (2.5-4.9)
[2020-08-03] MEDS: ATORVASTATIN CA 20 MG TABLET (FP) PO SCH (22:31)
[2020-08-03] MEDS: OLANZapine 10 MG TABLET PO SCH (22:31)
[2020-08-04] MEDS: LEVOTHYROXINE NA 125 MCG TABLET (FP) PO SCH (06:22)
[2020-08-04] MEDS: DEXAMETHASONE SOD PHOSPHATE 4 MG/1 ML VIAL IVPUSH SCH (10:15)
[2020-08-04] MEDS: ASCORBIC ACID 500 MG TABLET (FP) PO SCH (10:16)
[2020-08-04] MEDS: SERTRALINE HCL 50 MG TABLET (FP) PO SCH (10:16)
[2020-08-04] MEDS: ZINC SULFATE 220 MG CAPSULE (FP) PO SCH (10:16)
[2020-08-04] MEDS: ENOXAPARIN NA (PORCINE) 40 MG/0.4 ML DISP.SYRIN SQ SCH (10:16)
[2020-08-04] MEDS: LORazepam 1 MG TABLET PO PRN (10:16)
[2020-08-04] MEDS: FAMOTIDINE 10 MG TABLET PO SCH (10:17)
[2020-08-04] MEDS: CHOLECALCIFEROL (VIT D3) 5000 UNITS (125 MCG) CAP PO SCH (10:17)
[2020-08-04] MEDS: REMDESIVIR 100 MG in SODIUM CHLORIDE 230 ML IVPB SCH (10:18)
[2020-08-04] MEDS: guaiFENesin 200 MG/10 ML 10 ML UNIT-DOSE CUPS PO PRN ×2 (10:19→16:20)
[2020-08-04 15:43] VITALS: BP 123/70; PULSE 62; TEMP 97.6
== END 2020-08-04 16:46 | disposition home or self-care (01) | DRG 177 ==
LOC: JER 07:28 → JERBED 12:16 → J5S 18:02
PROVIDERS: ADMIT Internal Medicine; ATTEND Internal Medicine
PROC: XW033E5 Introduction of Remdesivir Anti-infective into Peripheral Vein, Percutaneous Approach, New Technology Group 5 (ICD-10-PCS; principal; 2020-07-31)
PROC: XW13325 Transfusion of Convalescent Plasma (Nonautologous) into Peripheral Vein, Percutaneous Approach, New Technology Group 5 (ICD-10-PCS; 2020-07-31)
DX: U07.1 COVID-19 (principal); J12.82 Pneumonia due to coronavirus disease 2019; J96.01 Acute respiratory failure with hypoxia; F20.0 Paranoid schizophrenia; Z68.41 Body mass index [BMI] 40.0-44.9, adult; J44.9 Chronic obstructive pulmonary disease, unspecified; E78.5 Hyperlipidemia, unspecified; F32.9 Major depressive disorder, single episode, unspecified; F41.9 Anxiety disorder, unspecified; E03.9 Hypothyroidism, unspecified; E66.01 Morbid (severe) obesity due to excess calories
CPT/HCPCS: 36415; 36430; 71045-TC-FY; 80053; 81003; 82248; 82550; 82728; 83036; 83605; 83615; 83735; 84100; 84484; 85025; 85027; 85379; 85610; 85730; 86140; 86850; 86900; 86901; 87040; 87086; 87426; 87804; 93005; 93010; 94010; 99285-25; C9399; J1100; P9017

== ENCOUNTER 2021-11-08 11:43 | Observation (INO) | payer BC, OTHER ==
[2021-11-08] MEDS ORDERED: methylPREDNISolone NA SUCC 125 MG/2 ML VIAL IVPUSH ONE (12:38)
[2021-11-08] MEDS ORDERED: ALBUTEROL SO4 2.5/IPRATROPIUM 0.5 INH SOL 3 ML VIAL.NEB. NEB ONE ×3 (13:04→19:41)
[2021-11-08 13:30] LABS: BASO % 0.3 % (0-2.0); EOS % 0.1 % (0-4.5); HEMATOCRIT 41.6 % (32.4-45.2); HEMOGLOBIN 13.8 GM/dL (10.7-15.3); LYMPH % 16.3 % (8-40); MCH 29.3 pg (25.7-33.7); MCHC 33.2 g/dl (32.0-36.0); MEAN CELL VOLUME 88.4 fl (80-96); MONO % 6.5 % (3.8-10.2); NEUT % 76.8 % (42.8-82.8); PLATELET COUNT 283 10^3/uL (134-434); RDW 13.9 % (11.6-15.6); WHITE BLOOD COUNT 7.5 K/mm3 (4.0-10.0)
[2021-11-08 13:53] LABS: ALBUMIN 3.6 g/dl (3.4-5.0); CALCIUM 9.3 mg/dL (8.5-10.1); MAGNESIUM 2.2 mg/dL (1.8-2.4)
[2021-11-08 13:57] LABS: CREATININE 0.8 mg/dL (0.55-1.3)
[2021-11-08 13:58] LABS: BILIRUBIN,TOTAL 0.3 mg/dL (0.2-1); TOT PROT 7.1 g/dl (6.4-8.2)
[2021-11-08 13:59] LABS: BLOOD UREA NITROGEN 10.7 mg/dL (7-18)
[2021-11-08] MEDS ORDERED: methylPREDNISolone NA SUCC 125 MG/2 ML VIAL ONE (14:55)
[2021-11-08] MEDS ORDERED: ALBUTEROL SO4 HFA INHALER IH ONE (19:41)
[2021-11-08] MEDS ORDERED: LORazepam 1 MG TABLET ONE (19:42)
[2021-11-08] MEDS: LORazepam 1 MG TABLET PO PRN (19:51)
[2021-11-08] MEDS: ALBUTEROL SO4 2.5/IPRATROPIUM 0.5 INH SOL 3 ML VIAL.NEB. NEB SCH (19:51)
[2021-11-08] MEDS: ALBUTEROL SO4 HFA INHALER IH PRN (19:51)
[2021-11-08] MEDS ORDERED: ENOXAPARIN NA (PORCINE) 40 MG/0.4 ML DISP.SYRIN SQ ONE (21:16)
[2021-11-08] MEDS ORDERED: OLANZapine 10 MG TABLET ONE (21:16)
[2021-11-08] MEDS: OLANZapine 10 MG TABLET PO SCH (21:32)
[2021-11-08] MEDS: ENOXAPARIN NA (PORCINE) 40 MG/0.4 ML DISP.SYRIN SQ SCH (21:32)
[2021-11-08] MEDS: BUDESONIDE/FORMETEROL FUMARATE 160/4.5 mcg INHALER IH SCH (21:32)
[2021-11-08] MEDS ORDERED: LORazepam 2 MG TABLET PO SCH (22:00)
[2021-11-08 23:19] VITALS: BMI 46.1
[2021-11-09] MEDS: LEVOTHYROXINE NA 125 MCG TABLET (FP) PO SCH (06:04)
[2021-11-09 07:16] LABS: HEMOGLOBIN 13.4 GM/dL (10.7-15.3); MCH 30.5 pg (25.7-33.7); MCHC 34.5 g/dl (32.0-36.0); MEAN CELL VOLUME 88.5 fl (80-96); MEAN PLT VOLUME 6.6 fl (7.5-11.1); PLATELET COUNT 251 10^3/uL (134-434); RDW 13.9 % (11.6-15.6); WHITE BLOOD COUNT 8.1 K/mm3 (4.0-10.0)
[2021-11-09 07:46] LABS: CALCIUM 8.8 mg/dL (8.5-10.1)
[2021-11-09 07:47] LABS: BLOOD UREA NITROGEN 12.7 mg/dL (7-18)
[2021-11-09 07:50] LABS: CREATININE 0.7 mg/dL (0.55-1.3)
[2021-11-09] MEDS: ALBUTEROL SO4 2.5/IPRATROPIUM 0.5 INH SOL 3 ML VIAL.NEB. NEB SCH ×4 (08:45→20:35)
[2021-11-09] MEDS: LORazepam 1 MG TABLET PO PRN ×2 (10:03→21:25)
[2021-11-09] MEDS: predniSONE 20 MG TABLET (UD) PO SCH (10:04)
[2021-11-09] MEDS: SERTRALINE HCL 50 MG TABLET (FP) PO SCH (10:05)
[2021-11-09] MEDS: MONTELUKAST NA 10 MG TABLET PO SCH (10:05)
[2021-11-09] MEDS: ALBUTEROL SO4 HFA INHALER IH PRN (10:07)
[2021-11-09] MEDS: BUDESONIDE/FORMETEROL FUMARATE 160/4.5 mcg INHALER IH SCH ×2 (10:07→21:25)
[2021-11-09] MEDS: ENOXAPARIN NA (PORCINE) 40 MG/0.4 ML DISP.SYRIN SQ SCH ×2 (10:10→21:24)
[2021-11-09] MEDS: TIOTROPIUM BROMIDE 2.5 MCG (SPIRIVA) RESPIMAT INHALER IH SCH (12:20)
[2021-11-09] MEDS: OLANZapine 10 MG TABLET PO SCH (21:25)
[2021-11-10] MEDS: LEVOTHYROXINE NA 125 MCG TABLET (FP) PO SCH (06:14)
[2021-11-10] MEDS: ALBUTEROL SO4 2.5/IPRATROPIUM 0.5 INH SOL 3 ML VIAL.NEB. NEB SCH ×3 (08:10→20:26)
[2021-11-10 09:19] LABS: BLOOD UREA NITROGEN 13.1 mg/dL (7-18)
[2021-11-10 09:20] LABS: CALCIUM 8.8 mg/dL (8.5-10.1)
[2021-11-10 09:22] LABS: CREATININE 0.8 mg/dL (0.55-1.3)
[2021-11-10] MEDS: LORazepam 1 MG TABLET PO PRN ×2 (10:48→18:27)
[2021-11-10] MEDS: ENOXAPARIN NA (PORCINE) 40 MG/0.4 ML DISP.SYRIN SQ SCH (10:48)
[2021-11-10] MEDS: SERTRALINE HCL 50 MG TABLET (FP) PO SCH (10:49)
[2021-11-10] MEDS: predniSONE 20 MG TABLET (UD) PO SCH (10:49)
[2021-11-10] MEDS: BUDESONIDE/FORMETEROL FUMARATE 160/4.5 mcg INHALER IH SCH (10:50)
[2021-11-10] MEDS: TIOTROPIUM BROMIDE 2.5 MCG (SPIRIVA) RESPIMAT INHALER IH SCH (10:50)
[2021-11-10] MEDS: MONTELUKAST NA 10 MG TABLET PO SCH (10:52)
[2021-11-10 14:02] VITALS: BP 119/73; PULSE 72; TEMP 97.7
== END 2021-11-10 21:00 | disposition home or self-care (01) ==
LOC: JER 11:43 → JERBED 13:30 → J7W 21:53
PROVIDERS: ADMIT Internal Medicine
PROC: 3E0F7GC Introduction of Other Therapeutic Substance into Respiratory Tract, Via Natural or Artificial Opening (ICD-10-PCS; principal; 2021-11-08)
PROC: 3E023GC Introduction of Other Therapeutic Substance into Muscle, Percutaneous Approach (ICD-10-PCS; 2021-11-08)
PROC: 3E033GC Introduction of Other Therapeutic Substance into Peripheral Vein, Percutaneous Approach (ICD-10-PCS; 2021-11-08)
DX: J45.41 Moderate persistent asthma with (acute) exacerbation (principal); F25.9 Schizoaffective disorder, unspecified; R00.2 Palpitations; E03.9 Hypothyroidism, unspecified; E66.01 Morbid (severe) obesity due to excess calories; Z68.42 Body mass index [BMI] 45.0-49.9, adult; Z86.16 Personal history of COVID-19; R09.81 Nasal congestion; E78.5 Hyperlipidemia, unspecified; F41.8 Other specified anxiety disorders; Z96.60 Presence of unspecified orthopedic joint implant; Z87.891 Personal history of nicotine dependence; Z88.0 Allergy status to penicillin
CPT/HCPCS: 36415; 71046-TC-FY; 80048; 80053; 83036; 83735; 84484; 85025; 85027; 87804; 93005; 93010; 94640; 94761; 96372; 96374; 97116-GP; 97162-GP; 99285-25; C9803-CS; G0378; U0003; U0005

== ENCOUNTER 2022-01-27 08:42 | Observation (INO) | payer BC, OTHER ==
[2022-01-27] MEDS ORDERED: ACETAMINOPHEN 500 MG TABLET (FP) PO ONE (09:16)
[2022-01-27] MEDS ORDERED: ACETAMINOPHEN 325 MG TABLET (FP) ONE (09:31)
[2022-01-27] MEDS ORDERED: MECLIZINE HCL 25 MG TABLET (FP) PO ONE (09:49)
[2022-01-27] MEDS ORDERED: ONDANSETRON *ODT* 4 MG TABLET SL ONE (09:49)
[2022-01-27] MEDS ORDERED: MECLIZINE HCL 25 MG TABLET (FP) ONE (10:06)
[2022-01-27] MEDS ORDERED: ONDANSETRON *ODT* 4 MG TABLET ONE (10:06)
[2022-01-27] MEDS ORDERED: LIDOCAINE 5% TOPICAL PATCH TP ONE (12:18)
[2022-01-27] MEDS ORDERED: SODIUM CHLORIDE 0.9% 500 ML INFUS.BAG IV ONE (12:50)
[2022-01-27 13:28] LABS: BASO % 0.7 % (0-2.0); EOS % 0.2 % (0-4.5); HEMATOCRIT 41.4 % (32.4-45.2); HEMOGLOBIN 13.9 GM/dL (10.7-15.3); LYMPH % 22.5 % (8-40); MCH 30.6 pg (25.7-33.7); MCHC 33.5 g/dl (32.0-36.0); MEAN CELL VOLUME 91.5 fl (80-96); MEAN PLT VOLUME 7.2 fl (7.5-11.1); MONO % 9.3 % (3.8-10.2); NEUT % 67.3 % (42.8-82.8); PLATELET COUNT 281 10^3/uL (134-434); RBC 4.52 M/mm3 (3.60-5.2); RDW 14.5 % (11.6-15.6)
[2022-01-27 13:33] LABS: INR 1.03 (0.83-1.09); PROTHROMBIN TIME (PATIENT) 11.8 SEC (9.7-13.0)
[2022-01-27 13:36] LABS: ACTIVATED PTT 32.2 SECONDS (25.2-36.5)
[2022-01-27 13:52] LABS: CALCIUM 9.4 mg/dL (8.5-10.1)
[2022-01-27 13:53] LABS: ALBUMIN 3.3 g/dl (3.4-5.0); BLOOD UREA NITROGEN 13.6 mg/dL (7-18)
[2022-01-27 13:57] LABS: TOT PROT 6.7 g/dl (6.4-8.2)
[2022-01-27 13:58] LABS: BILIRUBIN,TOTAL 0.5 mg/dL (0.2-1)
[2022-01-27 14:00] LABS: CREATININE 0.8 mg/dL (0.55-1.3)
[2022-01-27] MEDS ORDERED: LIDOCAINE 5% TOPICAL PATCH ONE (14:07)
[2022-01-27] MEDS ORDERED: MECLIZINE HCL 12.5 MG TABLET PO PRN (17:04)
[2022-01-27] MEDS ORDERED: ALBUTEROL SO4 0.083% IH SOL 2.5 MG/3 ML VIAL.NEB. NEB PRN (17:05)
[2022-01-27 20:01] LABS: EPI CELLS >36 /uL (0-25.1); HYALINE CASTS 19 /uL (0-3.1); PH,URINE 5.5 (5.0-8.0); URINE APPEARANCE TURBID; URINE BACTERIA >9,000 /uL (0-1359); URINE BILIRUBIN NEGATIVE (NEGATIVE); URINE COLOR YELLOW; URINE GLUCOSE (UA) NEGATIVE (NEGATIVE); URINE KETONE NEGATIVE (NEGATIVE); URINE LEUK ESTERASE 3+ (NEGATIVE); URINE NITRITE POSITIVE (NEGATIVE); URINE PROTEIN TRACE (NEGATIVE); URINE RBC 87 /uL (0-23.9); URINE UROBILINOGEN 0.2 mg/dL (0.2-1.0); URINE WBC 5668 /uL (0-25.8)
[2022-01-27] MEDS ORDERED: ATORVASTATIN CA 20 MG TABLET (FP) ONE (21:37)
[2022-01-27] MEDS ORDERED: OLANZapine 10 MG TABLET ONE (21:37)
[2022-01-27] MEDS ORDERED: MONTELUKAST NA 10 MG TABLET ONE (21:37)
[2022-01-27] MEDS ORDERED: LORazepam 1 MG TABLET ONE (21:37)
[2022-01-27] MEDS: OLANZapine 10 MG TABLET PO SCH (21:46)
[2022-01-27] MEDS: MONTELUKAST NA 10 MG TABLET PO SCH (21:46)
[2022-01-27] MEDS: ATORVASTATIN CA 20 MG TABLET (FP) PO SCH (21:46)
[2022-01-27] MEDS: LORazepam 2 MG TABLET PO PRN (21:46)
[2022-01-27] MEDS ORDERED: LIDOCAINE PATCH REMOVAL MC SCH (22:00)
[2022-01-28 07:52] LABS: HEMATOCRIT 38.6 % (32.4-45.2); HEMOGLOBIN 13.2 GM/dL (10.7-15.3); MCH 31.2 pg (25.7-33.7); MCHC 34.1 g/dl (32.0-36.0); MEAN CELL VOLUME 91.3 fl (80-96); MEAN PLT VOLUME 7.1 fl (7.5-11.1); PLATELET COUNT 229 10^3/uL (134-434); RBC 4.23 M/mm3 (3.60-5.2); RDW 14.6 % (11.6-15.6); WHITE BLOOD COUNT 8.1 K/mm3 (4.0-10.0)
[2022-01-28 08:08] LABS: BLOOD UREA NITROGEN 11.1 mg/dL (7-18); CALCIUM 8.6 mg/dL (8.5-10.1)
[2022-01-28 08:09] LABS: MAGNESIUM 2.3 mg/dL (1.8-2.4)
[2022-01-28 08:12] LABS: CREATININE 0.6 mg/dL (0.55-1.3)
[2022-01-28] MEDS ORDERED: predniSONE 20 MG TABLET (UD) ONE (09:57)
[2022-01-28] MEDS ORDERED: LEVOTHYROXINE NA 50 MCG TABLET (FP) ONE (09:58)
[2022-01-28] MEDS ORDERED: LEVOTHYROXINE NA 25 MCG TABLET (FP) ONE (09:58)
[2022-01-28] MEDS ORDERED: LORazepam 1 MG TABLET ONE (09:58)
[2022-01-28] MEDS ORDERED: SERTRALINE HCL 50 MG TABLET (FP) ONE (09:58)
[2022-01-28] MEDS: LEVOTHYROXINE NA 125 MCG TABLET (FP) PO SCH (10:30)
[2022-01-28] MEDS: LORazepam 2 MG TABLET PO PRN (10:30)
[2022-01-28] MEDS: predniSONE 10 MG TABLET (UD) PO SCH (10:45)
[2022-01-28] MEDS: SERTRALINE HCL 50 MG TABLET (FP) PO SCH (10:46)
[2022-01-28] MEDS: BUDESONIDE/FORMETEROL FUMARATE 160/4.5 mcg INHALER IH SCH ×3 (13:25→22:49)
[2022-01-28 13:35] VITALS: BMI 47.2
[2022-01-28] MEDS: oxyCODONE HCL 5 MG TABLET PO PRN (15:08)
[2022-01-28] MEDS: TIOTROPIUM BROMIDE 2.5 MCG (SPIRIVA) RESPIMAT INHALER IH SCH (16:11)
[2022-01-28] MEDS: MONTELUKAST NA 10 MG TABLET PO SCH (22:14)
[2022-01-28] MEDS: ATORVASTATIN CA 20 MG TABLET (FP) PO SCH (22:14)
[2022-01-28] MEDS: OLANZapine 10 MG TABLET PO SCH (22:14)
[2022-01-28] MEDS: LORazepam 1 MG TABLET PO PRN (22:18)
[2022-01-29] MEDS: LEVOTHYROXINE NA 125 MCG TABLET (FP) PO SCH (06:20)
[2022-01-29] MEDS: SERTRALINE HCL 50 MG TABLET (FP) PO SCH (09:06)
[2022-01-29] MEDS: predniSONE 10 MG TABLET (UD) PO SCH (09:06)
[2022-01-29] MEDS: BUDESONIDE/FORMETEROL FUMARATE 160/4.5 mcg INHALER IH SCH ×2 (09:07→21:14)
[2022-01-29] MEDS: TIOTROPIUM BROMIDE 2.5 MCG (SPIRIVA) RESPIMAT INHALER IH SCH (09:08)
[2022-01-29] MEDS: oxyCODONE HCL 5 MG TABLET PO PRN (09:13)
[2022-01-29] MEDS: IBUPROFEN 600 MG TABLET (FP) PO PRN ×2 (15:42→21:13)
[2022-01-29] MEDS: LORazepam 1 MG TABLET PO PRN (21:13)
[2022-01-29] MEDS: ATORVASTATIN CA 20 MG TABLET (FP) PO SCH (21:13)
[2022-01-29] MEDS: MONTELUKAST NA 10 MG TABLET PO SCH (21:13)
[2022-01-29] MEDS: OLANZapine 10 MG TABLET PO SCH (21:13)
[2022-01-30] MEDS: LEVOTHYROXINE NA 125 MCG TABLET (FP) PO SCH (06:03)
[2022-01-30] MEDS: SERTRALINE HCL 50 MG TABLET (FP) PO SCH (09:51)
[2022-01-30] MEDS: MECLIZINE HCL 12.5 MG TABLET PO SCH ×2 (09:51→14:45)
[2022-01-30] MEDS: predniSONE 10 MG TABLET (UD) PO SCH (09:51)
[2022-01-30] MEDS: LORazepam 1 MG TABLET PO PRN ×2 (09:52→22:43)
[2022-01-30] MEDS: TIOTROPIUM BROMIDE 2.5 MCG (SPIRIVA) RESPIMAT INHALER IH SCH (09:53)
[2022-01-30] MEDS: BUDESONIDE/FORMETEROL FUMARATE 160/4.5 mcg INHALER IH SCH ×2 (09:53→22:34)
[2022-01-30] MEDS: IBUPROFEN 600 MG TABLET (FP) PO PRN (11:05)
[2022-01-30] MEDS: OLANZapine 10 MG TABLET PO SCH (22:31)
[2022-01-30] MEDS: MECLIZINE HCL 25 MG TABLET (FP) PO SCH (22:31)
[2022-01-30] MEDS: ATORVASTATIN CA 20 MG TABLET (FP) PO SCH (22:31)
[2022-01-30] MEDS: MONTELUKAST NA 10 MG TABLET PO SCH (22:32)
[2022-01-31] MEDS: MECLIZINE HCL 25 MG TABLET (FP) PO SCH ×3 (05:43→21:57)
[2022-01-31] MEDS: IBUPROFEN 600 MG TABLET (FP) PO PRN ×2 (05:47→11:12)
[2022-01-31] MEDS: LEVOTHYROXINE NA 125 MCG TABLET (FP) PO SCH (07:27)
[2022-01-31] MEDS: TIOTROPIUM BROMIDE 2.5 MCG (SPIRIVA) RESPIMAT INHALER IH SCH (10:33)
[2022-01-31] MEDS: BUDESONIDE/FORMETEROL FUMARATE 160/4.5 mcg INHALER IH SCH ×2 (10:33→21:57)
[2022-01-31] MEDS: SERTRALINE HCL 50 MG TABLET (FP) PO SCH (10:34)
[2022-01-31] MEDS: LORazepam 1 MG TABLET PO PRN ×2 (10:44→23:05)
[2022-01-31 11:06] LABS: BASO % 0.5 % (0-2.0); EOS % 0.4 % (0-4.5); HEMATOCRIT 39.1 % (32.4-45.2); HEMOGLOBIN 13.1 GM/dL (10.7-15.3); LYMPH % 24.5 % (8-40); MCH 30.8 pg (25.7-33.7); MCHC 33.5 g/dl (32.0-36.0); MEAN CELL VOLUME 91.9 fl (80-96); MONO % 6.6 % (3.8-10.2); PLATELET COUNT 261 10^3/uL (134-434); RBC 4.25 M/mm3 (3.60-5.2); RDW 14.6 % (11.6-15.6); WHITE BLOOD COUNT 10.7 K/mm3 (4.0-10.0)
[2022-01-31 13:15] LABS: TOT PROT 5.8 g/dl (6.4-8.2)
[2022-01-31 13:20] LABS: ALBUMIN 2.8 g/dl (3.4-5.0)
[2022-01-31 13:21] LABS: CREATININE 0.8 mg/dL (0.55-1.3)
[2022-01-31 13:26] LABS: BILIRUBIN,TOTAL 0.3 mg/dL (0.2-1)
[2022-01-31] MEDS: oxyCODONE HCL 5 MG TABLET PO PRN (15:16)
[2022-01-31] MEDS: HEPARIN NA (PORCINE) 5,000 UNITS/ML 1ML VIAL SQ SCH (21:56)
[2022-01-31] MEDS: MONTELUKAST NA 10 MG TABLET PO SCH (21:56)
[2022-01-31] MEDS: OLANZapine 10 MG TABLET PO SCH (21:56)
[2022-01-31] MEDS: ATORVASTATIN CA 20 MG TABLET (FP) PO SCH (21:57)
[2022-02-01] MEDS: IBUPROFEN 600 MG TABLET (FP) PO PRN ×2 (01:03→16:47)
[2022-02-01] MEDS: LEVOTHYROXINE NA 125 MCG TABLET (FP) PO SCH (06:13)
[2022-02-01] MEDS: MECLIZINE HCL 25 MG TABLET (FP) PO SCH ×3 (06:13→21:26)
[2022-02-01] MEDS: LORazepam 1 MG TABLET PO PRN ×2 (09:29→21:27)
[2022-02-01] MEDS: SERTRALINE HCL 50 MG TABLET (FP) PO SCH (09:29)
[2022-02-01] MEDS: HEPARIN NA (PORCINE) 5,000 UNITS/ML 1ML VIAL SQ SCH ×2 (09:29→21:26)
[2022-02-01] MEDS: TIOTROPIUM BROMIDE 2.5 MCG (SPIRIVA) RESPIMAT INHALER IH SCH (09:32)
[2022-02-01] MEDS: BUDESONIDE/FORMETEROL FUMARATE 160/4.5 mcg INHALER IH SCH ×2 (09:32→21:25)
[2022-02-01 12:13] LABS: HEMATOCRIT 40.6 % (32.4-45.2); HEMOGLOBIN 13.8 GM/dL (10.7-15.3); MEAN CELL VOLUME 91.3 fl (80-96); MEAN PLT VOLUME 6.7 fl (7.5-11.1); PLATELET COUNT 263 10^3/uL (134-434); RBC 4.45 M/mm3 (3.60-5.2); RDW 14.8 % (11.6-15.6); WHITE BLOOD COUNT 8.6 K/mm3 (4.0-10.0)
[2022-02-01 12:50] LABS: ANISOCYTOSIS 1+; MACROCYTOSIS 0
[2022-02-01 13:24] LABS: ALBUMIN 2.9 g/dl (3.4-5.0); BLOOD UREA NITROGEN 13.7 mg/dL (7-18); CALCIUM 8.9 mg/dL (8.5-10.1)
[2022-02-01 13:27] LABS: CREATININE 0.8 mg/dL (0.55-1.3); TOT PROT 6.2 g/dl (6.4-8.2)
[2022-02-01 13:29] LABS: BILIRUBIN,TOTAL 0.2 mg/dL (0.2-1)
[2022-02-01] MEDS: LIDOCAINE 5% TOPICAL PATCH TP SCH (16:41)
[2022-02-01] MEDS: ATORVASTATIN CA 20 MG TABLET (FP) PO SCH (21:25)
[2022-02-01] MEDS: oxyCODONE HCL 5 MG TABLET PO PRN (21:25)
[2022-02-01] MEDS: OLANZapine 10 MG TABLET PO SCH (21:25)
[2022-02-01] MEDS: MONTELUKAST NA 10 MG TABLET PO SCH (21:26)
[2022-02-01] MEDS ORDERED: LIDOCAINE PATCH REMOVAL MC SCH (22:00)
[2022-02-02] MEDS: IBUPROFEN 600 MG TABLET (FP) PO PRN (01:45)
[2022-02-02] MEDS: LEVOTHYROXINE NA 125 MCG TABLET (FP) PO SCH (06:17)
[2022-02-02] MEDS: MECLIZINE HCL 25 MG TABLET (FP) PO SCH ×2 (06:17→14:49)
[2022-02-02] MEDS: TIOTROPIUM BROMIDE 2.5 MCG (SPIRIVA) RESPIMAT INHALER IH SCH (09:03)
[2022-02-02] MEDS: SERTRALINE HCL 50 MG TABLET (FP) PO SCH (09:03)
[2022-02-02] MEDS: HEPARIN NA (PORCINE) 5,000 UNITS/ML 1ML VIAL SQ SCH (09:03)
[2022-02-02] MEDS: LIDOCAINE 5% TOPICAL PATCH TP SCH (09:04)
[2022-02-02] MEDS: BUDESONIDE/FORMETEROL FUMARATE 160/4.5 mcg INHALER IH SCH (09:04)
[2022-02-02] MEDS ORDERED: LORazepam 1 MG TABLET PO PRN (11:28)
[2022-02-02] MEDS ORDERED: oxyCODONE HCL 5 MG TABLET PO PRN (11:28)
[2022-02-02 20:02] VITALS: BP 135/82; PULSE 82; TEMP 97.8
== END 2022-02-02 16:37 ==
LOC: JER 08:42 → JERBED 12:44 → J5S 01-28 13:08
PROVIDERS: ADMIT Internal Medicine; ATTEND Nurse Practitioner Family
PROC: 3E0F7GC Introduction of Other Therapeutic Substance into Respiratory Tract, Via Natural or Artificial Opening (ICD-10-PCS; principal; 2022-01-27)
PROC: 3E023GC Introduction of Other Therapeutic Substance into Muscle, Percutaneous Approach (ICD-10-PCS; 2022-01-27)
PROC: 3E0337Z Introduction of Electrolytic and Water Balance Substance into Peripheral Vein, Percutaneous Approach (ICD-10-PCS; 2022-01-27)
DX: S09.90XA Unspecified injury of head, initial encounter (principal); W18.39XA Other fall on same level, initial encounter; J44.9 Chronic obstructive pulmonary disease, unspecified; F32.9 Major depressive disorder, single episode, unspecified; E78.5 Hyperlipidemia, unspecified; E03.9 Hypothyroidism, unspecified; E66.01 Morbid (severe) obesity due to excess calories; R09.02 Hypoxemia; F20.0 Paranoid schizophrenia; Z68.42 Body mass index [BMI] 45.0-49.9, adult; R06.02 Shortness of breath; R06.09 Other forms of dyspnea; Y93.01 Activity, walking, marching and hiking; Y92.410 Unspecified street and highway as the place of occurrence of the external cause; K08.89 Other specified disorders of teeth and supporting structures
CPT/HCPCS: 0241U-QW; 36415; 70450-TC; 70551-TC; 71045-TC-FY; 72070-TC-FY; 72100-TC-FY; 72125-TC; 80048; 80053; 81003; 83036; 83735; 84443; 85025; 85027; 85610; 85730; 87086; 87186; 93005; 93010; 94640; 96360; 96372; 97116-GP; 97162-GP; 99285-25; C9803-CS; G0378; J1644; Q0162; U0003; U0005

== ENCOUNTER 2022-09-05 03:00 | Emergency (ER) | payer BC, OTHER ==
[2022-09-05 03:12] VITALS: BMI 30.4
[2022-09-05 03:57] LABS: BASO % 0.4 % (0-2.0); EOS % 0.3 % (0-4.5); HEMATOCRIT 40.2 % (32.4-45.2); HEMOGLOBIN 13.7 GM/dL (10.7-15.3); LYMPH % 17.5 % (8-40); MCH 29.9 pg (25.7-33.7); MCHC 34.1 g/dl (32.0-36.0); MEAN CELL VOLUME 87.8 fl (80-96); MEAN PLT VOLUME 6.8 fl (7.5-11.1); MONO % 8.8 % (3.8-10.2); PLATELET COUNT 303 10^3/uL (134-434); RBC 4.58 M/mm3 (3.60-5.2); RDW 13.9 % (11.6-15.6); WHITE BLOOD COUNT 7.7 K/mm3 (4.0-10.0)
[2022-09-05] MEDS ORDERED: ASPIRIN 81 MG CHEWABLE TABLETS PO ONE (04:15)
[2022-09-05 04:17] LABS: CALCIUM 9.2 mg/dL (8.5-10.1)
[2022-09-05 04:18] LABS: ALBUMIN 3.3 g/dl (3.4-5.0); BLOOD UREA NITROGEN 8.8 mg/dL (7-18)
[2022-09-05 04:21] LABS: CREATININE 0.8 mg/dL (0.55-1.3)
[2022-09-05 04:22] LABS: BILIRUBIN,TOTAL 0.7 mg/dL (0.2-1); TOT PROT 6.8 g/dl (6.4-8.2)
[2022-09-05] MEDS ORDERED: ASPIRIN 81 MG CHEWABLE TABLETS ONE (04:23)
[2022-09-05 07:55] VITALS: TEMP 97.5
[2022-09-05 11:12] VITALS: BP 140/82; PULSE 70; RESP 20
== END 2022-09-05 11:14 | disposition home or self-care (01) ==
LOC: JER 03:00
DX: R07.9 Chest pain, unspecified (principal)
CPT/HCPCS: 36415; 70450-TC; 71045-TC-FY; 80053; 84484; 85025; 93005; 93010; 99285-25

== ENCOUNTER 2022-09-17 14:32 | Emergency (ER) | payer OTHER, BC ==
[2022-09-17 15:17] VITALS: BMI 42.3
[2022-09-17 21:20] VITALS: BP 116/42; PULSE 76; RESP 20; TEMP 98.4
== END 2022-09-17 22:46 | disposition home or self-care (01) ==
LOC: JER 14:32
DX: M25.561 Pain in right knee (principal)
CPT/HCPCS: 73560-TC-RT-FY; 73564-TC-RT-FY; 99283-25

== ENCOUNTER 2022-09-25 14:58 | Observation (INO) | payer BC, OTHER ==
[2022-09-25 17:15] LABS: BASO % 0.3 % (0-2.0); EOS % 0.4 % (0-4.5); HEMATOCRIT 41.5 % (32.4-45.2); HEMOGLOBIN 13.8 GM/dL (10.7-15.3); LYMPH % 12.3 % (8-40); MCH 29.5 pg (25.7-33.7); MCHC 33.2 g/dl (32.0-36.0); MEAN CELL VOLUME 88.6 fl (80-96); MEAN PLT VOLUME 7.8 fl (7.5-11.1); PLATELET COUNT 290 10^3/uL (134-434); RBC 4.68 M/mm3 (3.60-5.2); RDW 14.3 % (11.6-15.6); WHITE BLOOD COUNT 6.7 K/mm3 (4.0-10.0)
[2022-09-25 17:30] LABS: CALCIUM 9.2 mg/dL (8.5-10.1)
[2022-09-25 17:31] LABS: BLOOD UREA NITROGEN 8.1 mg/dL (7-18)
[2022-09-25 17:34] LABS: CREATININE 0.6 mg/dL (0.55-1.3)
[2022-09-25 17:35] LABS: BILIRUBIN,TOTAL 0.4 mg/dL (0.2-1); TOT PROT 6.4 g/dl (6.4-8.2)
[2022-09-25 17:38] LABS: N-TERMINAL BNP 144.5 pg/ml (5-125)
[2022-09-25] MEDS ORDERED: ALBUTEROL SO4 HFA INHALER IH PRN (19:09)
[2022-09-25] MEDS ORDERED: LORazepam 1 MG TABLET ONE (22:27)
[2022-09-25] MEDS: LORazepam 1 MG TABLET PO SCH (22:39)
[2022-09-25] MEDS: BUDESONIDE/FORMETEROL FUMARATE 160/4.5 mcg INHALER IH SCH (22:39)
[2022-09-25] MEDS: OLANZapine 10 MG TABLET PO SCH (22:39)
[2022-09-26] MEDS: LEVOTHYROXINE NA 125 MCG TABLET (FP) PO SCH (06:29)
[2022-09-26 09:06] VITALS: BMI 44.0
[2022-09-26 10:01] LABS: BASO % 0.6 % (0-2.0); EOS % 0.6 % (0-4.5); HEMATOCRIT 39.3 % (32.4-45.2); HEMOGLOBIN 13.2 GM/dL (10.7-15.3); LYMPH % 16.1 % (8-40); MCH 29.8 pg (25.7-33.7); MCHC 33.5 g/dl (32.0-36.0); MEAN CELL VOLUME 88.9 fl (80-96); MEAN PLT VOLUME 7.8 fl (7.5-11.1); MONO % 10.6 % (3.8-10.2); NEUT % 72.1 % (42.8-82.8); PLATELET COUNT 279 10^3/uL (134-434); RBC 4.42 M/mm3 (3.60-5.2); RDW 14.3 % (11.6-15.6)
[2022-09-26] MEDS: LORazepam 1 MG TABLET PO SCH ×2 (10:01→21:44)
[2022-09-26] MEDS: SERTRALINE HCL 50 MG TABLET (FP) PO SCH (10:02)
[2022-09-26] MEDS: ENOXAPARIN NA (PORCINE) 40 MG/0.4 ML DISP.SYRIN SQ SCH (10:04)
[2022-09-26 10:28] LABS: CHOLESTEROL 211 mg/dL (50-200); TRIGLYCERIDES 135 mg/dL (0-150)
[2022-09-26] MEDS: BUDESONIDE/FORMETEROL FUMARATE 160/4.5 mcg INHALER IH SCH ×2 (10:28→22:19)
[2022-09-26 10:29] LABS: LDL CHOLESTEROL (ONLY SJRH) 135 mg/dL (5-100)
[2022-09-26 10:32] LABS: HDL CHOLESTEROL 45 mg/dL (40-60)
[2022-09-26] MEDS: guaiFENesin 200 MG/10 ML 10 ML UNIT-DOSE CUPS PO PRN (10:32)
[2022-09-26 10:33] LABS: BLOOD UREA NITROGEN 10.2 mg/dL (7-18); MAGNESIUM 2.3 mg/dL (1.8-2.4)
[2022-09-26 10:35] LABS: CREATININE 0.7 mg/dL (0.55-1.3)
[2022-09-26 10:37] LABS: BILIRUBIN,TOTAL 0.4 mg/dL (0.2-1)
[2022-09-26 10:38] LABS: PHOSPHOROUS 3.7 mg/dL (2.5-4.9)
[2022-09-26 16:53] LABS: EPI CELLS 29 /uL (0-25.1); HYALINE CASTS 0 /uL (0-3.1); PH,URINE 5.5 (5.0-8.0); URINE APPEARANCE TURBID; URINE BACTERIA >9,000 /uL (0-1359); URINE BILIRUBIN NEGATIVE (NEGATIVE); URINE COLOR DK YELLOW; URINE GLUCOSE (UA) NEGATIVE (NEGATIVE); URINE KETONE TRACE (NEGATIVE); URINE LEUK ESTERASE 3+ (NEGATIVE); URINE NITRITE POSITIVE (NEGATIVE); URINE PROTEIN 2+ (NEGATIVE); URINE RBC 18 /uL (0-23.9); URINE WBC 2533 /uL (0-25.8)
[2022-09-26] MEDS: OLANZapine 10 MG TABLET PO SCH (21:44)
[2022-09-27] MEDS: LEVOTHYROXINE NA 125 MCG TABLET (FP) PO SCH (06:19)
[2022-09-27] MEDS: LORazepam 1 MG TABLET PO SCH ×2 (10:08→21:23)
[2022-09-27] MEDS: SERTRALINE HCL 50 MG TABLET (FP) PO SCH (10:08)
[2022-09-27] MEDS: ENOXAPARIN NA (PORCINE) 40 MG/0.4 ML DISP.SYRIN SQ SCH (10:09)
[2022-09-27] MEDS: BUDESONIDE/FORMETEROL FUMARATE 160/4.5 mcg INHALER IH SCH ×2 (10:10→21:24)
[2022-09-27] MEDS: CEFTRIAXONE 1 GM in DEXTROSE 5%-WATER - 50 ML IVPB SCH (17:10)
[2022-09-27] MEDS: OLANZapine 10 MG TABLET PO SCH (21:25)
[2022-09-28] MEDS: LEVOTHYROXINE NA 125 MCG TABLET (FP) PO SCH (06:56)
[2022-09-28] MEDS: LORazepam 1 MG TABLET PO SCH ×2 (09:25→22:56)
[2022-09-28] MEDS: SERTRALINE HCL 50 MG TABLET (FP) PO SCH (09:25)
[2022-09-28] MEDS: ENOXAPARIN NA (PORCINE) 40 MG/0.4 ML DISP.SYRIN SQ SCH (09:25)
[2022-09-28] MEDS: CEFTRIAXONE 1 GM in DEXTROSE 5%-WATER - 50 ML IVPB SCH (09:25)
[2022-09-28] MEDS: BUDESONIDE/FORMETEROL FUMARATE 160/4.5 mcg INHALER IH SCH ×2 (10:20→22:39)
[2022-09-28] MEDS: OLANZapine 10 MG TABLET PO SCH (22:56)
[2022-09-29] MEDS: LEVOTHYROXINE NA 125 MCG TABLET (FP) PO SCH (06:03)
[2022-09-29] MEDS: guaiFENesin 200 MG/10 ML 10 ML UNIT-DOSE CUPS PO PRN (06:11)
[2022-09-29] MEDS ORDERED: CEPHALEXIN MONOHYDRATE 500 MG CAPSULE (UD) PO SCH (10:00)
[2022-09-29] MEDS: LORazepam 1 MG TABLET PO SCH (10:41)
[2022-09-29] MEDS: ENOXAPARIN NA (PORCINE) 40 MG/0.4 ML DISP.SYRIN SQ SCH (10:41)
[2022-09-29] MEDS: SERTRALINE HCL 50 MG TABLET (FP) PO SCH (10:41)
[2022-09-29] MEDS: BUDESONIDE/FORMETEROL FUMARATE 160/4.5 mcg INHALER IH SCH (10:42)
[2022-09-29 13:25] VITALS: BP 112/61; PULSE 79; RESP 16; TEMP 98.3
== END 2022-09-29 14:10 ==
LOC: JER 14:58 → JERBED 17:55 → J6S 09-26 03:51
PROVIDERS: ADMIT Internal Medicine; ATTEND Internal Medicine
PROC: 3E03329 Introduction of Other Anti-infective into Peripheral Vein, Percutaneous Approach (ICD-10-PCS; principal; 2022-09-25)
PROC: 3E0F7SF Introduction of Other Gas into Respiratory Tract, Via Natural or Artificial Opening (ICD-10-PCS; 2022-09-25)
DX: R62.7 Adult failure to thrive (principal); R26.81 Unsteadiness on feet; R42 Dizziness and giddiness; Z68.41 Body mass index [BMI] 40.0-44.9, adult; R29.6 Repeated falls; F41.0 Panic disorder [episodic paroxysmal anxiety]; F20.0 Paranoid schizophrenia; F41.9 Anxiety disorder, unspecified; J44.9 Chronic obstructive pulmonary disease, unspecified; E78.5 Hyperlipidemia, unspecified; E03.9 Hypothyroidism, unspecified; Z87.891 Personal history of nicotine dependence; R10.813 Right lower quadrant abdominal tenderness; E66.01 Morbid (severe) obesity due to excess calories; Z99.81 Dependence on supplemental oxygen; N39.0 Urinary tract infection, site not specified
CPT/HCPCS: 0241U-QW; 36415; 71045-TC-FY; 80053; 80061; 81003; 83735; 83880; 84100; 84439; 84443; 84484; 85025; 87086; 87186; 93005; 93010; 94640; 96372; 96374; 97116-GP; 97162-GP; 99285-25; G0378

== ENCOUNTER 2022-12-05 11:16 | Inpatient (IN) | payer BC, OTHER ==
[2022-12-05] MEDS ORDERED: ACETAMINOPHEN 500 MG TABLET (FP) PO ONE (11:48)
[2022-12-05] MEDS ORDERED: ACETAMINOPHEN 500 MG TABLET (FP) ONE (13:20)
[2022-12-05 13:36] LABS: BASO % 0.3 % (0-2.0); EOS % 0.1 % (0-4.5); HEMATOCRIT 41.7 % (32.4-45.2); HEMOGLOBIN 14.5 GM/dL (10.7-15.3); LYMPH % 10.8 % (8-40); MCHC 34.7 g/dl (32.0-36.0); MEAN CELL VOLUME 86.4 fl (80-96); MEAN PLT VOLUME 7.7 fl (7.5-11.1); MONO % 8.3 % (3.8-10.2); NEUT % 80.5 % (42.8-82.8); PLATELET COUNT 297 10^3/uL (134-434); RBC 4.82 M/mm3 (3.60-5.2); WHITE BLOOD COUNT 8.6 K/mm3 (4.0-10.0)
[2022-12-05 13:51] LABS: POTASSIUM 3.9 mmol/L (3.5-5.1)
[2022-12-05 13:53] LABS: CALCIUM 9.5 mg/dL (8.5-10.1)
[2022-12-05 13:54] LABS: ALBUMIN 3.2 g/dl (3.4-5.0); BLOOD UREA NITROGEN 9.4 mg/dL (7-18); MAGNESIUM 2.1 mg/dL (1.8-2.4)
[2022-12-05 13:57] LABS: CREATININE 0.7 mg/dL (0.55-1.3)
[2022-12-05 13:59] LABS: BILIRUBIN,TOTAL 0.3 mg/dL (0.2-1); TOT PROT 6.4 g/dl (6.4-8.2)
[2022-12-05] MEDS ORDERED: ALBUTEROL SO4 0.083% IH SOL 2.5 MG/3 ML VIAL.NEB. NEB PRN (15:45)
[2022-12-05 16:09] VITALS: BMI 43.7
[2022-12-05 17:52] LABS: EPI CELLS 22 /uL (0-25.1); HYALINE CASTS 1 /uL (0-3.1); PH,URINE 5.5 (5.0-8.0); URINE APPEARANCE CLOUDY; URINE BACTERIA >9,000 /uL (0-1359); URINE BILIRUBIN NEGATIVE (NEGATIVE); URINE COLOR DK YELLOW; URINE GLUCOSE (UA) NEGATIVE (NEGATIVE); URINE KETONE TRACE (NEGATIVE); URINE LEUK ESTERASE 2+ (NEGATIVE); URINE NITRITE POSITIVE (NEGATIVE); URINE PROTEIN TRACE (NEGATIVE); URINE RBC 22 /uL (0-23.9); URINE UROBILINOGEN 0.2 mg/dL (0.2-1.0); URINE WBC 435 /uL (0-25.8)
[2022-12-05] MEDS: OLANZapine 10 MG TABLET PO SCH (22:34)
[2022-12-05] MEDS: LORazepam 1 MG TABLET PO PRN (22:35)
[2022-12-05] MEDS: ATORVASTATIN CA 20 MG TABLET (FP) PO SCH (22:35)
[2022-12-05] MEDS: BUDESONIDE/FORMETEROL FUMARATE 160/4.5 mcg INHALER IH SCH ×2 (22:36→22:39)
[2022-12-05] MEDS: MONTELUKAST NA 10 MG TABLET PO SCH (22:36)
[2022-12-06] MEDS: LEVOTHYROXINE NA 125 MCG TABLET (FP) PO SCH (06:54)
[2022-12-06] MEDS: SERTRALINE HCL 50 MG TABLET (FP) PO SCH (09:39)
[2022-12-06] MEDS: BUDESONIDE/FORMETEROL FUMARATE 160/4.5 mcg INHALER IH SCH ×3 (09:40→22:54)
[2022-12-06] MEDS: TIOTROPIUM BROMIDE 2.5 MCG (SPIRIVA) RESPIMAT INHALER IH SCH (09:41)
[2022-12-06] MEDS: ERTAPENEM SODIUM 1 GM in SODIUM CHLORIDE 50 ML IVPB SCH (11:36)
[2022-12-06] MEDS: HEPARIN NA (PORCINE) 5,000 UNITS/ML 1ML VIAL SQ SCH ×2 (11:37→21:11)
[2022-12-06] MEDS: LORazepam 1 MG TABLET PO PRN (11:40)
[2022-12-06] MEDS: ALBUTEROL SO4 0.083% IH SOL 2.5 MG/3 ML VIAL.NEB. NEB SCH ×2 (13:23→20:59)
[2022-12-06] MEDS ORDERED: ACETAMINOPHEN 325 MG TABLET (FP) PO PRN (15:54)
[2022-12-06] MEDS ORDERED: MECLIZINE HCL 12.5 MG TABLET PO PRN (15:54)
[2022-12-06] MEDS: MONTELUKAST NA 10 MG TABLET PO SCH ×2 (21:12→22:54)
[2022-12-06] MEDS: ATORVASTATIN CA 20 MG TABLET (FP) PO SCH ×2 (21:12→22:54)
[2022-12-06] MEDS: OLANZapine 10 MG TABLET PO SCH ×2 (21:12→22:54)
[2022-12-07] MEDS: LEVOTHYROXINE NA 125 MCG TABLET (FP) PO SCH ×2 (06:06→06:19)
[2022-12-07] MEDS: ALBUTEROL SO4 0.083% IH SOL 2.5 MG/3 ML VIAL.NEB. NEB SCH ×3 (08:08→19:44)
[2022-12-07 08:25] LABS: BASO % 0.4 % (0-2.0); EOS % 0.8 % (0-4.5); HEMATOCRIT 37.5 % (32.4-45.2); HEMOGLOBIN 12.8 GM/dL (10.7-15.3); MCH 29.6 pg (25.7-33.7); MCHC 34.3 g/dl (32.0-36.0); MEAN CELL VOLUME 86.5 fl (80-96); MEAN PLT VOLUME 7.4 fl (7.5-11.1); MONO % 10.7 % (3.8-10.2); NEUT % 62.1 % (42.8-82.8); PLATELET COUNT 279 10^3/uL (134-434); RBC 4.33 M/mm3 (3.60-5.2); RDW 13.8 % (11.6-15.6); WHITE BLOOD COUNT 5.1 K/mm3 (4.0-10.0)
[2022-12-07 08:52] LABS: POTASSIUM 3.7 mmol/L (3.5-5.1)
[2022-12-07 08:56] LABS: CALCIUM 8.6 mg/dL (8.5-10.1)
[2022-12-07 08:57] LABS: MAGNESIUM 2.1 mg/dL (1.8-2.4)
[2022-12-07 09:01] LABS: BILIRUBIN,TOTAL 0.5 mg/dL (0.2-1); CREATININE 0.6 mg/dL (0.55-1.3); TOT PROT 5.8 g/dl (6.4-8.2)
[2022-12-07] MEDS: SERTRALINE HCL 50 MG TABLET (FP) PO SCH (11:01)
[2022-12-07] MEDS: ERTAPENEM SODIUM 1 GM in SODIUM CHLORIDE 50 ML IVPB SCH (11:01)
[2022-12-07] MEDS: HEPARIN NA (PORCINE) 5,000 UNITS/ML 1ML VIAL SQ SCH ×2 (11:01→21:26)
[2022-12-07] MEDS: TIOTROPIUM BROMIDE 2.5 MCG (SPIRIVA) RESPIMAT INHALER IH SCH (11:03)
[2022-12-07] MEDS: BUDESONIDE/FORMETEROL FUMARATE 160/4.5 mcg INHALER IH SCH ×2 (11:04→21:26)
[2022-12-07] MEDS: LORazepam 1 MG TABLET PO PRN (11:12)
[2022-12-07] MEDS: MONTELUKAST NA 10 MG TABLET PO SCH (21:26)
[2022-12-07] MEDS: ATORVASTATIN CA 20 MG TABLET (FP) PO SCH (21:26)
[2022-12-07] MEDS: OLANZapine 10 MG TABLET PO SCH (21:26)
[2022-12-08] MEDS: LEVOTHYROXINE NA 125 MCG TABLET (FP) PO SCH (06:50)
[2022-12-08] MEDS: ALBUTEROL SO4 0.083% IH SOL 2.5 MG/3 ML VIAL.NEB. NEB SCH ×3 (07:52→20:05)
[2022-12-08 09:02] LABS: BASO % 0.5 % (0-2.0); EOS % 0.5 % (0-4.5); HEMATOCRIT 40.7 % (32.4-45.2); HEMOGLOBIN 13.8 GM/dL (10.7-15.3); LYMPH % 25.8 % (8-40); MCH 29.4 pg (25.7-33.7); MCHC 33.9 g/dl (32.0-36.0); MEAN CELL VOLUME 86.6 fl (80-96); MEAN PLT VOLUME 7.9 fl (7.5-11.1); MONO % 10.5 % (3.8-10.2); NEUT % 62.7 % (42.8-82.8); PLATELET COUNT 285 10^3/uL (134-434); RDW 13.8 % (11.6-15.6); WHITE BLOOD COUNT 5.1 K/mm3 (4.0-10.0)
[2022-12-08 09:07] LABS: POTASSIUM 3.9 mmol/L (3.5-5.1)
[2022-12-08 09:31] LABS: ALBUMIN 3.3 g/dl (3.4-5.0); CALCIUM 9.4 mg/dL (8.5-10.1)
[2022-12-08 09:32] LABS: CREATININE 0.6 mg/dL (0.55-1.3); MAGNESIUM 2.2 mg/dL (1.8-2.4)
[2022-12-08 09:33] LABS: BILIRUBIN,TOTAL 0.5 mg/dL (0.2-1)
[2022-12-08 09:34] LABS: TOT PROT 6.7 g/dl (6.4-8.2)
[2022-12-08 09:35] LABS: BLOOD UREA NITROGEN 6.4 mg/dL (7-18)
[2022-12-08] MEDS: SERTRALINE HCL 50 MG TABLET (FP) PO SCH (10:18)
[2022-12-08] MEDS: HEPARIN NA (PORCINE) 5,000 UNITS/ML 1ML VIAL SQ SCH ×2 (10:18→22:39)
[2022-12-08] MEDS: ERTAPENEM SODIUM 1 GM in SODIUM CHLORIDE 50 ML IVPB SCH (10:18)
[2022-12-08] MEDS: BUDESONIDE/FORMETEROL FUMARATE 160/4.5 mcg INHALER IH SCH (10:19)
[2022-12-08] MEDS: TIOTROPIUM BROMIDE 2.5 MCG (SPIRIVA) RESPIMAT INHALER IH SCH (10:19)
[2022-12-08] MEDS: LORazepam 1 MG TABLET PO PRN (18:22)
[2022-12-08] MEDS: OLANZapine 10 MG TABLET PO SCH (22:42)
[2022-12-08] MEDS: MONTELUKAST NA 10 MG TABLET PO SCH (22:43)
[2022-12-08] MEDS: ATORVASTATIN CA 20 MG TABLET (FP) PO SCH (22:43)
[2022-12-09] MEDS: BUDESONIDE/FORMETEROL FUMARATE 160/4.5 mcg INHALER IH SCH ×3 (00:17→21:48)
[2022-12-09] MEDS: LEVOTHYROXINE NA 125 MCG TABLET (FP) PO SCH (06:51)
[2022-12-09] MEDS: ALBUTEROL SO4 0.083% IH SOL 2.5 MG/3 ML VIAL.NEB. NEB SCH ×3 (07:55→20:33)
[2022-12-09 08:13] LABS: BASO % 0.5 % (0-2.0); EOS % 0.8 % (0-4.5); HEMATOCRIT 39.2 % (32.4-45.2); HEMOGLOBIN 13.5 GM/dL (10.7-15.3); LYMPH % 24.3 % (8-40); MCHC 34.4 g/dl (32.0-36.0); MEAN CELL VOLUME 87.2 fl (80-96); MEAN PLT VOLUME 7.4 fl (7.5-11.1); MONO % 11.2 % (3.8-10.2); NEUT % 63.2 % (42.8-82.8); PLATELET COUNT 278 10^3/uL (134-434); RBC 4.49 M/mm3 (3.60-5.2); WHITE BLOOD COUNT 5.1 K/mm3 (4.0-10.0)
[2022-12-09 08:32] LABS: POTASSIUM 3.9 mmol/L (3.5-5.1)
[2022-12-09 08:37] LABS: ALBUMIN 3.1 g/dl (3.4-5.0); CALCIUM 9.1 mg/dL (8.5-10.1); MAGNESIUM 2.2 mg/dL (1.8-2.4)
[2022-12-09 08:40] LABS: CREATININE 0.7 mg/dL (0.55-1.3)
[2022-12-09 08:42] LABS: BILIRUBIN,TOTAL 0.4 mg/dL (0.2-1); TOT PROT 6.2 g/dl (6.4-8.2)
[2022-12-09] MEDS: HEPARIN NA (PORCINE) 5,000 UNITS/ML 1ML VIAL SQ SCH ×2 (09:56→21:40)
[2022-12-09] MEDS: SERTRALINE HCL 50 MG TABLET (FP) PO SCH (09:59)
[2022-12-09] MEDS: TIOTROPIUM BROMIDE 2.5 MCG (SPIRIVA) RESPIMAT INHALER IH SCH (10:01)
[2022-12-09] MEDS: LORazepam 1 MG TABLET PO PRN ×2 (11:01→21:47)
[2022-12-09] MEDS ORDERED: BISACODYL 10 MG SUPP.RECT PR ONE (11:25)
[2022-12-09] MEDS: ERTAPENEM SODIUM 1 GM in SODIUM CHLORIDE 50 ML IVPB SCH ×2 (12:24→12:45)
[2022-12-09] MEDS: ATORVASTATIN CA 20 MG TABLET (FP) PO SCH (21:41)
[2022-12-09] MEDS: MONTELUKAST NA 10 MG TABLET PO SCH (21:41)
[2022-12-09] MEDS: OLANZapine 10 MG TABLET PO SCH (21:41)
[2022-12-10] MEDS: LEVOTHYROXINE NA 125 MCG TABLET (FP) PO SCH (06:23)
[2022-12-10] MEDS: ALBUTEROL SO4 0.083% IH SOL 2.5 MG/3 ML VIAL.NEB. NEB SCH ×2 (07:45→19:52)
[2022-12-10 08:10] LABS: BASO % 0.4 % (0-2.0); EOS % 0.7 % (0-4.5); HEMATOCRIT 40.6 % (32.4-45.2); HEMOGLOBIN 13.8 GM/dL (10.7-15.3); LYMPH % 24.2 % (8-40); MCH 29.4 pg (25.7-33.7); MCHC 33.9 g/dl (32.0-36.0); MEAN CELL VOLUME 86.5 fl (80-96); MEAN PLT VOLUME 7.2 fl (7.5-11.1); MONO % 10.9 % (3.8-10.2); NEUT % 63.8 % (42.8-82.8); PLATELET COUNT 268 10^3/uL (134-434); RBC 4.69 M/mm3 (3.60-5.2); RDW 13.9 % (11.6-15.6); WHITE BLOOD COUNT 4.7 K/mm3 (4.0-10.0)
[2022-12-10 08:21] LABS: POTASSIUM 3.9 mmol/L (3.5-5.1)
[2022-12-10 08:31] LABS: CALCIUM 9.2 mg/dL (8.5-10.1)
[2022-12-10 08:32] LABS: ALBUMIN 3.1 g/dl (3.4-5.0); BLOOD UREA NITROGEN 10.9 mg/dL (7-18)
[2022-12-10 08:35] LABS: CREATININE 0.6 mg/dL (0.55-1.3); TOT PROT 6.3 g/dl (6.4-8.2)
[2022-12-10 08:37] LABS: BILIRUBIN,TOTAL 0.5 mg/dL (0.2-1)
[2022-12-10] MEDS: HEPARIN NA (PORCINE) 5,000 UNITS/ML 1ML VIAL SQ SCH ×2 (09:05→21:38)
[2022-12-10] MEDS: LORazepam 1 MG TABLET PO PRN ×2 (09:06→21:38)
[2022-12-10] MEDS: SERTRALINE HCL 50 MG TABLET (FP) PO SCH (09:06)
[2022-12-10] MEDS: BUDESONIDE/FORMETEROL FUMARATE 160/4.5 mcg INHALER IH SCH ×2 (09:07→21:39)
[2022-12-10] MEDS: TIOTROPIUM BROMIDE 2.5 MCG (SPIRIVA) RESPIMAT INHALER IH SCH (09:08)
[2022-12-10] MEDS: ATORVASTATIN CA 20 MG TABLET (FP) PO SCH (21:38)
[2022-12-10] MEDS: OLANZapine 10 MG TABLET PO SCH (21:38)
[2022-12-10] MEDS: MONTELUKAST NA 10 MG TABLET PO SCH (21:38)
[2022-12-11] MEDS: LEVOTHYROXINE NA 125 MCG TABLET (FP) PO SCH (06:23)
[2022-12-11] MEDS: ALBUTEROL SO4 0.083% IH SOL 2.5 MG/3 ML VIAL.NEB. NEB SCH ×3 (07:37→20:15)
[2022-12-11] MEDS: SERTRALINE HCL 50 MG TABLET (FP) PO SCH (10:17)
[2022-12-11] MEDS: TIOTROPIUM BROMIDE 2.5 MCG (SPIRIVA) RESPIMAT INHALER IH SCH (10:18)
[2022-12-11] MEDS: HEPARIN NA (PORCINE) 5,000 UNITS/ML 1ML VIAL SQ SCH ×2 (10:18→21:23)
[2022-12-11] MEDS: BUDESONIDE/FORMETEROL FUMARATE 160/4.5 mcg INHALER IH SCH ×2 (10:19→21:25)
[2022-12-11 10:26] LABS: BASO % 0.4 % (0-2.0); EOS % 0.5 % (0-4.5); HEMATOCRIT 39.1 % (32.4-45.2); LYMPH % 21.4 % (8-40); MCH 28.9 pg (25.7-33.7); MCHC 33.1 g/dl (32.0-36.0); MEAN CELL VOLUME 87.2 fl (80-96); MEAN PLT VOLUME 7.2 fl (7.5-11.1); MONO % 8.8 % (3.8-10.2); NEUT % 68.9 % (42.8-82.8); PLATELET COUNT 261 10^3/uL (134-434); RBC 4.49 M/mm3 (3.60-5.2); RDW 13.9 % (11.6-15.6); WHITE BLOOD COUNT 5.2 K/mm3 (4.0-10.0)
[2022-12-11 10:49] LABS: POTASSIUM 4.1 mmol/L (3.5-5.1)
[2022-12-11 10:51] LABS: CALCIUM 9.2 mg/dL (8.5-10.1)
[2022-12-11 10:52] LABS: BLOOD UREA NITROGEN 9.6 mg/dL (7-18)
[2022-12-11 10:55] LABS: CREATININE 0.7 mg/dL (0.55-1.3)
[2022-12-11 10:57] LABS: BILIRUBIN,TOTAL 0.4 mg/dL (0.2-1); TOT PROT 6.2 g/dl (6.4-8.2)
[2022-12-11] MEDS: LORazepam 1 MG TABLET PO PRN ×2 (11:17→23:07)
[2022-12-11 14:16] VITALS: RESP 20
[2022-12-11] MEDS: MONTELUKAST NA 10 MG TABLET PO SCH (21:23)
[2022-12-11] MEDS: ATORVASTATIN CA 20 MG TABLET (FP) PO SCH (21:23)
[2022-12-11] MEDS: OLANZapine 10 MG TABLET PO SCH (21:23)
[2022-12-11 23:03] VITALS: TEMP 97.7
[2022-12-12] MEDS: LEVOTHYROXINE NA 125 MCG TABLET (FP) PO SCH (06:15)
[2022-12-12] MEDS: ALBUTEROL SO4 0.083% IH SOL 2.5 MG/3 ML VIAL.NEB. NEB SCH (07:43)
[2022-12-12] MEDS: HEPARIN NA (PORCINE) 5,000 UNITS/ML 1ML VIAL SQ SCH (09:26)
[2022-12-12] MEDS: SERTRALINE HCL 50 MG TABLET (FP) PO SCH (09:26)
[2022-12-12] MEDS: TIOTROPIUM BROMIDE 2.5 MCG (SPIRIVA) RESPIMAT INHALER IH SCH (09:26)
[2022-12-12] MEDS: BUDESONIDE/FORMETEROL FUMARATE 160/4.5 mcg INHALER IH SCH (09:27)
[2022-12-12] MEDS: LORazepam 1 MG TABLET PO PRN (10:20)
[2022-12-12 12:52] VITALS: BP 130/69; PULSE 64
== END 2022-12-12 13:00 | DRG 690 ==
LOC: JER 11:16 → JERBED 14:37 → J8W 15:27 → OBSVTOIN 12-07 15:46 → J8W 12-08 15:02
PROVIDERS: ADMIT Internal Medicine; ATTEND Nurse Practitioner Acute Care
DX: N39.0 Urinary tract infection, site not specified (principal); F20.0 Paranoid schizophrenia; E66.2 Morbid (severe) obesity with alveolar hypoventilation; J96.11 Chronic respiratory failure with hypoxia; Z68.41 Body mass index [BMI] 40.0-44.9, adult; E03.9 Hypothyroidism, unspecified; J44.9 Chronic obstructive pulmonary disease, unspecified; E78.5 Hyperlipidemia, unspecified
CPT/HCPCS: 36415; 70450-TC; 71046-TC-FY; 72170-TC-FY; 73562-TC-LT-FY; 73562-TC-RT-FY; 80053; 80061; 81003; 83036; 83735; 84443; 84484; 85025; 87086; 87186; 93005; 93010; 93306-TC; 94640; 97116-GP; 97161-GP; 99285-25; C9803-CS; G0378; J1644; U0003; U0005